=== PATIENT | female | born 1980 | race African-American/Black ===

== ENCOUNTER 2021-12-14 18:44 | Emergency (ER) | payer MEDICARE, OTHER | END 2021-12-14 21:35 | disposition home or self-care (01) | LOC: ERS 18:44 | DX: K94.23 Gastrostomy malfunction (principal) | CPT/HCPCS: 74018 ==

== ENCOUNTER 2022-03-13 17:00 | Emergency (ER) | payer MEDICARE, OTHER ==
[2022-03-13] MEDS ORDERED: Cefepime 2 GM VIAL ONE (18:12)
[2022-03-13 18:18] LABS: #Eosinphils 0.2 thou/uL (0.0-0.7); #Lymphocytes 2.7 thou/uL (1.20-3.40); #Neutrophils 4.7 thou/uL (1.40-6.50); %Basophils 0.4 % (0.0-1.0); %Eosinophils 2.4 % (0.0-10.0); %Monocytes 11.7 % (0.0-10.0); %Neutrophils 54.5 % (42.0-75.0); Hemoglobin 8.6 g/dL (12.0-16.0); Mean Corpuscular HGB CONC 30.7 g/dL (32.0-36.0); Mean Corpuscular Hemoglobin 24.7 pg (27.0-31.0); Mean Corpuscular Volume 80.4 fL (78.0-98.0); Mean Platelet Volume 10.2 fL (7.4-10.4); Platelet Count 253 thou/uL (130-400); RBC Distribution Width 16.1 % (11.5-14.5); White Blood Cell (WBC) Count 8.6 thou/uL (4.8-10.8)
[2022-03-13] MEDS ORDERED: Vancomycin 1.5 GRAM/300 ML BAG 1.5 GM in Premix Bag 1 BAG IVPB SCH (18:30)
[2022-03-13 18:39] LABS: ALT (SGPT) 54 U/L (8-55); AST (SGOT) 28 U/L (5-34); Albumin 3.4 g/dL (3.5-5.0); Alkaline Phosphatase 129 U/L (40-110); Anion Gap 12 mmol/L (10-20); BUN (Urea Nitrogen) 20 mg/dL (7.0-18.7); Bilirubin, Total Less than 0.2 mg/dL (0.2-1.2); Calc. Creatinine Clearance 0 mL/min (70-130); Calcium 9.2 mg/dL (7.8-10.44); Carbon Dioxide 28 mmol/L (22-29); Chloride 107 mmol/L (98-107); Estimated GFR 112; Globulin 5.2 g/dL (2.4-3.5); Glucose 120 mg/dL (70-105); Lipase 19 U/L (8-78); Potassium 4.3 mmol/L (3.5-5.1); Protein, Total 8.6 g/dL (6.0-8.3); Sodium 143 mmol/L (136-145)
[2022-03-13 20:29] LABS: Bilirubin Negative (Negative); Blood, Urine Negative (Negative); Clarity Clear (Clear); Glucose, Urine (Dipstick) Normal (Negative); Ketone, Urine Negative (Negative); Leukocyte 75 Leu/uL (Negative); Nitrite 2+ (Negative); Protein, Urine (Dipstick) 20 mg/dL (Neg-Trace); RBC/HPF 0-3 HPF (0-3); Specific Gravity, Urine 1.032 (1.002-1.036); Urobilinogen Normal mg/dL (Less than 2)
[2022-03-13 20:38] LABS: Bacteria/HPF 1+ HPF (None Seen)
== END 2022-03-13 22:43 | disposition home or self-care (01) ==
LOC: ERS 17:00
DX: N61.0 Mastitis without abscess (principal); N39.0 Urinary tract infection, site not specified
CPT/HCPCS: 74018; 76642; 80053; 83605; 83690; 85025; 87040; J3370; 36415; 51701; 81003; 81015; 96365; 96367; J0692

== ENCOUNTER 2023-06-15 14:15 | Emergency (ER) | payer MEDICAID, MEDICARE, OTHER ==
[~2023-06-15 14:15] MED LIST: Iopamidol-370 76% 500 ML MDV (1 ML CHARGE) ONE
[2023-06-15 17:04] LABS: ALT (SGPT) 7 U/L (8-55); AST (SGOT) 12 U/L (5-34); Albumin 3.7 g/dL (3.5-5.0); Alkaline Phosphatase 80 U/L (40-110); Anion Gap 18 mmol/L (10-20); BUN (Urea Nitrogen) 10 mg/dL (7.0-18.7); Bilirubin, Total 0.5 mg/dL (0.2-1.2); Calc. Creatinine Clearance 0 mL/min (70-130); Calcium 8.9 mg/dL (7.8-10.44); Carbon Dioxide 20 mmol/L (22-29); Chloride 110 mmol/L (98-107); Estimated GFR 113; Glucose 107 mg/dL (70-105); Lipase 5 U/L (8-78); Potassium 3.4 mmol/L (3.5-5.1); Protein, Total 8.7 g/dL (6.0-8.3); Sodium 145 mmol/L (136-145)
[2023-06-15 17:24] LABS: #Eosinphils 0.1 thou/uL (0.0-0.7); #Monocytes 0.8 thou/uL (0.11-0.59); #Neutrophils 3.3 thou/uL (1.40-6.50); %Basophils 0.2 % (0.0-1.0); %Eosinophils 0.8 % (0.0-10.0); %Lymphocytes 35.9 % (21.0-51.0); %Monocytes 11.9 % (0.0-10.0); Hematocrit 39.8 % (36.0-47.0); Hemoglobin 11.6 g/dL (12.0-16.0); Mean Corpuscular HGB CONC 29.1 g/dL (32.0-36.0); Mean Corpuscular Hemoglobin 23.5 pg (27.0-31.0); Mean Corpuscular Volume 80.6 fl (78.0-98.0); Platelet Count 192 10x3/uL (130-400); RBC Distribution Width 21.7 % (11.5-14.5); Red Blood Cell (RBC) Count 4.94 mill/uL (4.20-5.40); White Blood Cell (WBC) Count 6.4 10x3/uL (4.8-10.8)
[2023-06-15 17:26] LABS: BHCG - Serum Negative (NEGATIVE); Pregs Control Background? CLEAR/WHITE (CLR/WHITE); Pregs Control Bar Appear? YES (CONTROL BAR)
[2023-06-15] MEDS ORDERED: Mineral Oil ENEMA ONE (19:53)
== END 2023-06-15 21:06 | disposition home or self-care (01) ==
LOC: ERS 14:15
DX: K59.00 Constipation, unspecified (principal); E11.9 Type 2 diabetes mellitus without complications; I10 Essential (primary) hypertension; E03.9 Hypothyroidism, unspecified; Z79.84 Long term (current) use of oral hypoglycemic drugs; Z79.899 Other long term (current) drug therapy; Z79.82 Long term (current) use of aspirin
CPT/HCPCS: 36415; 71045; 74177; 80053; 83605; 83690; 83735; 84703; 85025; 94760; 96360; 96361; Q9967

== ENCOUNTER 2023-06-20 10:31 | Outpatient (CLI) | payer MEDICARE, OTHER | END 2023-06-20 10:32 | disposition home or self-care (01) | LOC: RAD 10:31 | PROVIDERS: ATTEND Student in an Organized Health Care Education/Training Program | DX: I69.891 Dysphagia following other cerebrovascular disease (principal) | CPT/HCPCS: 74230 ==

== ENCOUNTER 2023-07-03 12:52 | Inpatient (IN) | payer MEDICAID, MEDICARE ==
[~2023-07-03 12:52] MED LIST changes: -Iopamidol-370 76% 500 ML MDV (1 ML CHARGE) ONE; +Lidocaine 1% PF 5 ML VIAL ONE; +PROPOFOL 200 MG/20 ML VIAL ONE
[2023-07-03 13:20] LABS: #Monocytes 1.2 thou/uL (0.11-0.59); %Basophils 0.1 % (0.0-1.0); %Lymphocytes 9.4 % (21.0-51.0); %Monocytes 8.8 % (0.0-10.0); %Neutrophils 81.2 % (42.0-75.0); Hematocrit 44.2 % (36.0-47.0); Hemoglobin 12.8 g/dL (12.0-16.0); Mean Corpuscular Volume 82.8 fl (78.0-98.0); RBC Distribution Width 22.9 % (11.5-14.5); Red Blood Cell (RBC) Count 5.34 mill/uL (4.20-5.40); White Blood Cell (WBC) Count 13.5 10x3/uL (4.8-10.8)
[2023-07-03 13:21] LABS: Platelet Count 121 10x3/uL (130-400)
[2023-07-03 13:34] LABS: ALT (SGPT) 90 U/L (8-55); AST (SGOT) 94 U/L (5-34); Alkaline Phosphatase 103 U/L (40-110); Anion Gap 29 mmol/L (10-20); BUN (Urea Nitrogen) 76 mg/dL (7.0-18.7); Bilirubin, Total 1.1 mg/dL (0.2-1.2); Calc. Creatinine Clearance 0 mL/min (70-130); Calcium 9.1 mg/dL (7.8-10.44); Carbon Dioxide 23 mmol/L (22-29); Chloride 115 mmol/L (98-107); Estimated GFR 13; Globulin 4.7 g/dL (2.4-3.5); Potassium 4.1 mmol/L (3.5-5.1); Protein, Total 7.7 g/dL (6.0-8.3)
[2023-07-03 13:42] LABS: Glucose 571 mg/dL (70-105); Sodium 163 mmol/L (136-145)
[2023-07-03 13:59] LABS: Actual Bicarbonate (HCO3v) 22.3 mEq/L (22-28); Base Excess -2.8 mEq/L (-2.0 to +3.0); Calcium, Ionized (venous) 1.01 mmol/L (1.16-1.32); Chloride (VBG) 117 mmol/L (98-106); Hematocrit-VBG 41 % (36.0-47.0); Hemoglobin (Hb) 13.8 g/dL (11.7-15.5); pH (venous) 7.367 (7.32-7.43)
[2023-07-03 14:01] LABS: Potassium (VBG) 6.24 mmol/L (3.70-5.30); Sodium 162 mmol/L (133-146)
[2023-07-03] MEDS ORDERED: Sodium Chloride 0.9% 100 ML ONE (14:13)
[2023-07-03] MEDS ORDERED: Piperacillin/Tazobactam 3.375 GM VIAL ONE (14:13)
[2023-07-03 14:17] LABS: Lipase 34 U/L (8-78); Magnesium 3.1 mg/dL (1.6-2.6); Phosphorus 5.8 mg/dL (2.3-4.7)
[2023-07-03 14:21] LABS: INR-International Normal Ratio 1.3; PTT 24.8 sec (22.9-36.1); Prothrombin Time 16.5 sec (12.0-14.7)
[2023-07-03] MEDS ORDERED: Calcium Chloride 1 GM/10 ML Abboject SYRINGE ONE (14:35)
[2023-07-03] MEDS ORDERED: NOREPINEPHRINE 8 MG/250 ML-D5W 250 ML ONE (14:35)
[2023-07-03] MEDS ORDERED: Sodium Bicarb 50 MEQ/50 ML Abboject 8.4% SYRINGE ONE (14:40)
[2023-07-03] MEDS ORDERED: Atropine Sulfate 1 mg/10 ml Syringe ONE (14:40)
[2023-07-03] MEDS ORDERED: Insulin Regular 300 UNITS/3 ML VIAL ONE (14:58)
[2023-07-03 15:22] LABS: Troponin I 0.038 ng/mL (< 0.028)
[2023-07-03] MEDS ORDERED: INSULIN REGULAR IN 0.9 % NACL 100 UNITS/100 ML BAG ONE (15:32)
[2023-07-03 15:33] LABS: Hemoglobin A1c 7.1 % (4.0-6.0)
[2023-07-03 15:35] LABS: Free T4 (Free Thyroxine) 0.85 ng/dL (0.70-1.48)
[2023-07-03] MEDS ORDERED: Electrolyte Replacement Protocol 1 EACH IVPB ONE (15:57)
[2023-07-03] MEDS ORDERED: D5 1/2 NS w/20 mEq KCL 1,000 ML IV PRN (15:57)
[2023-07-03] MEDS ORDERED: Sodium Chloride 0.9% 1,000 ML IV PRN ×4 (15:57)
[2023-07-03] MEDS ORDERED: NS 0.9% w/ 20 MEQ KCL 1,000 ML IV PRN ×2 (15:57)
[2023-07-03] MEDS ORDERED: Dextrose 50% Abboject 50 ML SYRINGE SLOW IVP PRN (15:57)
[2023-07-03] MEDS ORDERED: Dextrose 5 %-0.45 % NaCl 1,000 ML IV PRN (15:57)
[2023-07-03 16:29] LABS: Lactic Acid 2.6 mmol/L (0.5-2.2)
[2023-07-03] MEDS: NOREPINEPHRINE 8 MG/250 ML-D5W 250 ML IVPB SCH (16:40)
[2023-07-03 16:48] LABS: Troponin I 0.062 ng/mL (< 0.028)
[2023-07-03 16:57] LABS: Anion Gap 18 mmol/L (10-20); BUN (Urea Nitrogen) 64 mg/dL (7.0-18.7); Calc. Creatinine Clearance 0 mL/min (70-130); Calcium 8.6 mg/dL (7.8-10.44); Carbon Dioxide 23 mmol/L (22-29); Chloride 128 mmol/L (98-107); Estimated GFR 18; Glucose 385 mg/dL (70-105); Potassium 2.4 mmol/L (3.5-5.1); Sodium 167 mmol/L (136-145)
[2023-07-03 17:09] LABS: Bilirubin 1+ (Negative); Blood, Urine 2+ (Negative); CAUTI Indications for Culture Alt mental st,lethar; Clarity Turbid (Clear); Glucose, Urine (Dipstick) 300 mg/dL (Negative); Ketone, Urine 10 mg/dL (Negative); Leukocyte 25 Leu/uL (Negative); Nitrite Negative (Negative); Protein, Urine (Dipstick) 50 mg/dL (Neg-Trace); Specific Gravity, Urine 1.015 (1.002-1.036); Urobilinogen 3 mg/dL (Less than 2); pH, Urine 5.5 (5.0-9.0)
[2023-07-03] MEDS ORDERED: Sodium Chloride 0.45% 1,000 ML IV SCH (17:15)
[2023-07-03] MEDS ORDERED: Potassium Chloride 20 MEQ in Premix 1 BAG IVPB SCH (17:15)
[2023-07-03 17:17] LABS: Bacteria/HPF 2+ HPF (None Seen)
[2023-07-03 17:18] LABS: Urine Culture Reflex Yes Yes
[2023-07-03 17:30] LABS: SARS-CoV-2 NAA Rapid Test Not Detected (NotDetected)
[2023-07-03] MEDS: Potassium Chloride 20 MEQ in Premix 1 BAG IVPB SCH (17:36)
[2023-07-03] MEDS ORDERED: Piperacillin/Tazobactam 2.25 GM in Sodium Chloride 0.9% 100 ML IVPB SCH (18:00)
[2023-07-03] MEDS: Piperacillin/Tazobactam 3.375 GM in Sodium Chloride 0.9% 100 ML IVPB SCH (18:41)
[2023-07-03 20:32] LABS: Anion Gap 19 mmol/L (10-20); BUN (Urea Nitrogen) 60 mg/dL (7.0-18.7); Calc. Creatinine Clearance 25 mL/min (70-130); Calcium 8.8 mg/dL (7.8-10.44); Carbon Dioxide 23 mmol/L (22-29); Chloride 127 mmol/L (98-107); Estimated GFR 22; Glucose 157 mg/dL (70-105); Potassium 3.3 mmol/L (3.5-5.1); Sodium 166 mmol/L (136-145)
[2023-07-03 20:34] LABS: Troponin I 0.093 ng/mL (< 0.028)
[2023-07-03] MEDS ORDERED: Albumin 25% 25 GM/100 ML BOT IVPB SCH (21:00)
[2023-07-03] MEDS ORDERED: D5 1/2 NS w/20 mEq KCL 1,000 ML IV SCH (21:15)
[2023-07-03] MEDS ORDERED: Sodium Chloride 0.9% 1,000 ML IV SCH (21:15)
[2023-07-03] MEDS: Heparin 5,000 UNITS/ML VIAL SC SCH (21:47)
[2023-07-03] MEDS: Albumin 25% 25 GM/100 ML BOT IVPB SCH (22:26)
[2023-07-04 01:28] LABS: Troponin I 0.097 ng/mL (< 0.028)
[2023-07-04 01:29] LABS: Lactic Acid 5.9 mmol/L (0.5-2.2)
[2023-07-04 01:35] LABS: Anion Gap 17 mmol/L (10-20); BUN (Urea Nitrogen) 51 mg/dL (7.0-18.7); Calc. Creatinine Clearance 30 mL/min (70-130); Calcium 8.3 mg/dL (7.8-10.44); Carbon Dioxide 23 mmol/L (22-29); Chloride 129 mmol/L (98-107); Estimated GFR 27; Glucose 157 mg/dL (70-105); Potassium 3.5 mmol/L (3.5-5.1); Sodium 165 mmol/L (136-145)
[2023-07-04] MEDS ORDERED: Ondansetron PF 4 MG/2 ML Vial IVP SCH (02:45)
[2023-07-04] MEDS: D5 1/2 NS w/20 mEq KCL 1,000 ML IV SCH ×5 (02:53→15:50)
[2023-07-04] MEDS: HUMULIN R 100 UNITS in Sodium Chloride 0.9% 100 ML IVPB SCH ×2 (02:56→08:55)
[2023-07-04 03:40] LABS: #Monocytes 0.9 thou/uL (0.11-0.59); #Neutrophils 8.3 thou/uL (1.40-6.50); %Basophils 0.1 % (0.0-1.0); %Eosinophils 0.1 % (0.0-10.0); %Monocytes 7.9 % (0.0-10.0); %Neutrophils 71.2 % (42.0-75.0); Mean Corpuscular HGB CONC 27.1 g/dL (32.0-36.0); Mean Corpuscular Hemoglobin 23.9 pg (27.0-31.0); RBC Distribution Width 22.5 % (11.5-14.5); Red Blood Cell (RBC) Count 3.27 mill/uL (4.20-5.40); White Blood Cell (WBC) Count 11.7 10x3/uL (4.8-10.8)
[2023-07-04 03:48] LABS: Platelet Count 70 10x3/uL (130-400)
[2023-07-04 03:54] LABS: Hematocrit 28.8 % (36.0-47.0); Hemoglobin 7.8 g/dL (12.0-16.0); Mean Corpuscular Volume 88.1 fl (78.0-98.0)
[2023-07-04 04:06] LABS: ALT (SGPT) 42 U/L (8-55); AST (SGOT) 40 U/L (5-34); Albumin 2.6 g/dL (3.5-5.0); Alkaline Phosphatase 53 U/L (40-110); Anion Gap 11 mmol/L (10-20); BUN (Urea Nitrogen) 45 mg/dL (7.0-18.7); Calc. Creatinine Clearance 33 mL/min (70-130); Calcium 8.2 mg/dL (7.8-10.44); Carbon Dioxide 26 mmol/L (22-29); Chloride 125 mmol/L (98-107); Estimated GFR 30; Globulin 2.6 g/dL (2.4-3.5); Glucose 275 mg/dL (70-105); Magnesium 1.9 mg/dL (1.6-2.6); Potassium 3.3 mmol/L (3.5-5.1); Protein, Total 5.2 g/dL (6.0-8.3); Sodium 159 mmol/L (136-145)
[2023-07-04 04:27] LABS: CellaVision Operator ID LAB.CLH1; Elliptocytes SLIGHT = 2-5 cells HPF (0-1); Hypochromia SLIGHT = 6-15 cells HPF (0-5); Platelet Adequacy Comment Platelets Decreased; Poikilocytosis MODERATE=16-30 cells HPF (0-5); Polychromasia SLIGHT = 2-3 cells HPF (0-2); Schistocytes SLIGHT = 2-5 cells HPF (0-1); Target Cells SLIGHT = 2-5 cells HPF (0-1)
[2023-07-04 05:02] LABS: Troponin I 0.083 ng/mL (< 0.028)
[2023-07-04] MEDS: Albumin 25% 25 GM/100 ML BOT IVPB SCH ×3 (05:17→15:50)
[2023-07-04] MEDS: Piperacillin/Tazobactam 3.375 GM in Sodium Chloride 0.9% 100 ML IVPB SCH ×3 (05:51→22:09)
[2023-07-04] MEDS ORDERED: Electrolyte Replacement Protocol 1 EACH FS SCH (06:30)
[2023-07-04] MEDS: Potassium Chloride 20 MEQ in Premix 1 BAG IVPB SCH ×2 (07:59→09:26)
[2023-07-04] MEDS: Bisacodyl 10 MG SUPP PR SCH (08:00)
[2023-07-04] MEDS ORDERED: Potassium Phosphate 22 MMOL in Sodium Chloride 0.9% 250 ML 250 ML IVPB SCH (08:00)
[2023-07-04] MEDS: Heparin 5,000 UNITS/ML VIAL SC SCH ×3 (08:11→20:29)
[2023-07-04] MEDS ORDERED: Famotidine/PF 20 mg/2ml Vial SLOW IVP SCH (09:00)
[2023-07-04 09:31] LABS: Hematocrit 25.7 % (36.0-47.0); Hemoglobin 7.3 g/dL (12.0-16.0)
[2023-07-04 09:53] LABS: Anion Gap 16 mmol/L (10-20); BUN (Urea Nitrogen) 35 mg/dL (7.0-18.7); Calc. Creatinine Clearance 49 mL/min (70-130); Carbon Dioxide 21 mmol/L (22-29); Chloride 125 mmol/L (98-107); Estimated GFR 45; Glucose 201 mg/dL (70-105); Potassium 4.4 mmol/L (3.5-5.1)
[2023-07-04 10:01] LABS: Sodium 158 mmol/L (136-145)
[2023-07-04] MEDS ORDERED: Glucagon 1 MG/ML KIT IM PRN (10:29)
[2023-07-04] MEDS ORDERED: Dextrose 5% in Water 1,000 ML IV PRN (10:29)
[2023-07-04] MEDS ORDERED: Fentanyl 100 MCG/2 ML VIAL SLOW IVP PRN (10:38)
[2023-07-04] MEDS: HumaLOG 300 UNITS/3 ML VIAL SC PRN ×3 (11:46→17:55)
[2023-07-04] MEDS: NOREPINEPHRINE 8 MG/250 ML-D5W 250 ML IVPB SCH (12:23)
[2023-07-04] MEDS ORDERED: Magnesium 2 GM/50 ML(in water) 2 GM in Premix 1 BAG IVPB SCH (12:30)
[2023-07-04 13:50] LABS: Anion Gap 15 mmol/L (10-20); BUN (Urea Nitrogen) 30 mg/dL (7.0-18.7); Calc. Creatinine Clearance 53 mL/min (70-130); Calcium 8.1 mg/dL (7.8-10.44); Carbon Dioxide 19 mmol/L (22-29); Chloride 124 mmol/L (98-107); Estimated GFR 50; Glucose 244 mg/dL (70-105); Potassium 5.4 mmol/L (3.5-5.1)
[2023-07-04 14:01] LABS: Sodium 153 mmol/L (136-145)
[2023-07-04 14:10] LABS: Magnesium 1.9 mg/dL (1.6-2.6)
[2023-07-04] MEDS ORDERED: Dextrose 5 %-0.45 % NaCl 1,000 ML IV SCH (16:00)
[2023-07-04] MEDS: Lactated Ringer's 1,000 ML IV SCH ×2 (17:30→22:09)
[2023-07-04 19:42] LABS: Anion Gap 17 mmol/L (10-20); BUN (Urea Nitrogen) 22 mg/dL (7.0-18.7); Calc. Creatinine Clearance 60 mL/min (70-130); Calcium 8.4 mg/dL (7.8-10.44); Carbon Dioxide 18 mmol/L (22-29); Chloride 122 mmol/L (98-107); Estimated GFR 58; Glucose 296 mg/dL (70-105); Potassium 4.5 mmol/L (3.5-5.1)
[2023-07-04 19:48] LABS: Sodium 152 mmol/L (136-145)
[2023-07-04 21:47] LABS: Anion Gap 14 mmol/L (10-20); BUN (Urea Nitrogen) 20 mg/dL (7.0-18.7); Calc. Creatinine Clearance 66 mL/min (70-130); Calcium 8.4 mg/dL (7.8-10.44); Carbon Dioxide 21 mmol/L (22-29); Chloride 122 mmol/L (98-107); Estimated GFR 65; Glucose 201 mg/dL (70-105); Potassium 4.4 mmol/L (3.5-5.1)
[2023-07-04 21:58] LABS: Sodium 153 mmol/L (136-145)
[2023-07-05 01:46] LABS: Anion Gap 16 mmol/L (10-20); BUN (Urea Nitrogen) 16 mg/dL (7.0-18.7); Calc. Creatinine Clearance 85 mL/min (70-130); Calcium 8.6 mg/dL (7.8-10.44); Carbon Dioxide 23 mmol/L (22-29); Chloride 120 mmol/L (98-107); Estimated GFR 88; Glucose 167 mg/dL (70-105); Potassium 4.4 mmol/L (3.5-5.1)
[2023-07-05 01:50] LABS: Sodium 155 mmol/L (136-145)
[2023-07-05] MEDS: Lactated Ringer's 1,000 ML IV SCH ×4 (03:12→19:20)
[2023-07-05 05:36] LABS: #Eosinphils 0.1 thou/uL (0.0-0.7); #Monocytes 0.7 thou/uL (0.11-0.59); #Neutrophils 4.6 thou/uL (1.40-6.50); %Basophils 0.1 % (0.0-1.0); %Eosinophils 0.7 % (0.0-10.0); %Lymphocytes 33.2 % (21.0-51.0); %Monocytes 8.2 % (0.0-10.0); %Neutrophils 56.9 % (42.0-75.0); Hematocrit 25.9 % (36.0-47.0); Hemoglobin 7.6 g/dL (12.0-16.0); Mean Corpuscular HGB CONC 29.3 g/dL (32.0-36.0); Mean Corpuscular Hemoglobin 24.1 pg (27.0-31.0); Mean Corpuscular Volume 82.2 fl (78.0-98.0); RBC Distribution Width 22.5 % (11.5-14.5); Red Blood Cell (RBC) Count 3.15 mill/uL (4.20-5.40); White Blood Cell (WBC) Count 8.1 10x3/uL (4.8-10.8)
[2023-07-05 05:37] LABS: Platelet Count 45 10x3/uL (130-400)
[2023-07-05] MEDS: Piperacillin/Tazobactam 3.375 GM in Sodium Chloride 0.9% 100 ML IVPB SCH (05:53)
[2023-07-05 06:06] LABS: Magnesium 1.8 mg/dL (1.6-2.6); Phosphorus 1.9 mg/dL (2.3-4.7)
[2023-07-05 07:49] LABS: Anion Gap 13 mmol/L (10-20); BUN (Urea Nitrogen) 13 mg/dL (7.0-18.7); Calc. Creatinine Clearance 97 mL/min (70-130); Calcium 8.4 mg/dL (7.8-10.44); Carbon Dioxide 25 mmol/L (22-29); Chloride 118 mmol/L (98-107); Estimated GFR 102; Glucose 156 mg/dL (70-105); Potassium 4.3 mmol/L (3.5-5.1)
[2023-07-05 07:54] LABS: Sodium 152 mmol/L (136-145)
[2023-07-05] MEDS ORDERED: Magnesium 2 GM/50 ML(in water) 2 GM in Premix 1 BAG IVPB SCH (08:00)
[2023-07-05] MEDS ORDERED: Potassium Phosphate 15 MMOL in Sodium Chloride 0.9% 100 ML IVPB SCH (08:00)
[2023-07-05] MEDS: Bisacodyl 10 MG SUPP PR SCH (08:29)
[2023-07-05] MEDS: Famotidine/PF 20 mg/2ml Vial SLOW IVP SCH ×2 (08:40→20:24)
[2023-07-05 12:02] LABS: Platelet Count 67 10x3/uL (130-400)
[2023-07-05 12:43] LABS: Phosphorus 2.7 mg/dL (2.3-4.7)
[2023-07-05] MEDS: CEFAZOLIN 1 GM in Sodium Chloride 0.9% 100 ML IVPB SCH ×2 (15:29→23:20)
[2023-07-06] MEDS: Lactated Ringer's 1,000 ML IV SCH ×4 (04:15→21:14)
[2023-07-06 05:05] LABS: Anion Gap 15 mmol/L (10-20); BUN (Urea Nitrogen) 8 mg/dL (7.0-18.7); Calc. Creatinine Clearance 112 mL/min (70-130); Calcium 8.3 mg/dL (7.8-10.44); Carbon Dioxide 23 mmol/L (22-29); Chloride 109 mmol/L (98-107); Estimated GFR 112; Glucose 165 mg/dL (70-105); Phosphorus 2.4 mg/dL (2.3-4.7); Potassium 4.3 mmol/L (3.5-5.1); Sodium 143 mmol/L (136-145)
[2023-07-06] MEDS: CEFAZOLIN 1 GM in Sodium Chloride 0.9% 100 ML IVPB SCH ×3 (05:59→21:19)
[2023-07-06 07:58] LABS: #Eosinphils 0.1 thou/uL (0.0-0.7); #Monocytes 0.6 thou/uL (0.11-0.59); #Neutrophils 4.4 thou/uL (1.40-6.50); %Lymphocytes 35.2 % (21.0-51.0); Hematocrit 28.8 % (36.0-47.0); Hemoglobin 8.6 g/dL (12.0-16.0); Mean Corpuscular HGB CONC 29.9 g/dL (32.0-36.0); Mean Corpuscular Hemoglobin 24.3 pg (27.0-31.0); Mean Corpuscular Volume 81.4 fl (78.0-98.0); Platelet Count 73 10x3/uL (130-400); RBC Distribution Width 22.1 % (11.5-14.5); Red Blood Cell (RBC) Count 3.54 mill/uL (4.20-5.40)
[2023-07-06] MEDS ORDERED: Magnesium 2 GM/50 ML(in water) 2 GM in Premix 1 BAG IVPB SCH (08:00)
[2023-07-06] MEDS ORDERED: PROPOFOL 20 ML ONE (08:22)
[2023-07-06] MEDS ORDERED: Lidocaine 1% PF 5 ML VIAL ONE (08:22)
[2023-07-06] MEDS: Bisacodyl 10 MG SUPP PR SCH (09:10)
[2023-07-06] MEDS: Famotidine/PF 20 mg/2ml Vial SLOW IVP SCH ×2 (09:11→21:15)
[2023-07-06 09:38] VITALS: BMI 22.7
[2023-07-06 11:14] LABS: Band 2 % (5-11); Burr Cells MODERATE= 6-15 cells (100X) (0-1/hpf); Eosinophils 1 % (0-10); Lymphocytes 33 % (21-51); Monocytes 6 % (0-10); Neutrophil 58 % (42-75); Polychromasia SLIGHT = 2-3 cells (100X) (0-2/hpf); Schistocytes SLIGHT = 2-5 cells (100X) (0-1/hpf)
[2023-07-06 11:15] LABS: Anisocytosis MODERATE=16-30 cells (100X) (0-5/hpf); Hypochromia SLIGHT = 6-15 cells (100X) (0-5/hpf); Nucleated RBC (Manual Ct) 1 % (0)
[2023-07-06 11:16] LABS: Ovalocytes SLIGHT = 2-5 cells (100X) (0-1/hpf); Platelet Adequacy Comment Platelets Decreased
[2023-07-06] MEDS ORDERED: traZODone HCl 50 MG TAB PER TUBE PRN (14:04)
[2023-07-06] MEDS ORDERED: FLU VACC QS2023-24(6MOS UP)/PF 60 MCG/0.5 ML SYRINGE IM ONE (19:30)
[2023-07-06] MEDS: QUEtiapine 25 MG TAB PER TUBE SCH (21:15)
[2023-07-06] MEDS: hydrOXYzine 25 MG TAB PER TUBE SCH (21:15)
[2023-07-06] MEDS: Baclofen 10 MG TAB PER TUBE SCH (21:15)
[2023-07-06] MEDS: levETIRAcetam 500 mg/5 ml Oral Solution PER TUBE SCH (21:15)
[2023-07-06] MEDS: lamoTRIgine 25 MG TAB PER TUBE SCH (21:15)
[2023-07-06] MEDS: HumaLOG 300 UNITS/3 ML VIAL SC PRN (21:16)
[2023-07-07] MEDS ORDERED: Lactated Ringer's 500 ML IV SCH (02:30)
[2023-07-07] MEDS ORDERED: Lactated Ringer's 1,000 ML IV SCH (02:30)
[2023-07-07] MEDS ORDERED: Acetaminophen 325 MG TAB PO SCH (03:15)
[2023-07-07] MEDS: Lactated Ringer's 1,000 ML IV SCH (03:41)
[2023-07-07] MEDS: CEFAZOLIN 1 GM in Sodium Chloride 0.9% 100 ML IVPB SCH ×3 (05:02→22:00)
[2023-07-07] MEDS: HumaLOG 300 UNITS/3 ML VIAL SC PRN ×4 (05:02→22:00)
[2023-07-07 06:25] LABS: Magnesium 1.4 mg/dL (1.6-2.6); Phosphorus 2.1 mg/dL (2.3-4.7)
[2023-07-07] MEDS ORDERED: Magnesium Sulfate In Water 4 GM in Premix 1 BAG IVPB SCH (08:00)
[2023-07-07 08:30] LABS: #Eosinphils 0.1 thou/uL (0.0-0.7); #Monocytes 0.7 thou/uL (0.11-0.59); #Neutrophils 3.9 thou/uL (1.40-6.50); %Basophils 0.1 % (0.0-1.0); %Eosinophils 0.9 % (0.0-10.0); %Lymphocytes 35.8 % (21.0-51.0); %Monocytes 9.2 % (0.0-10.0); %Neutrophils 53.1 % (42.0-75.0); Hematocrit 33.4 % (36.0-47.0); Hemoglobin 10.3 g/dL (12.0-16.0); Mean Corpuscular HGB CONC 30.8 g/dL (32.0-36.0); Mean Corpuscular Hemoglobin 24.2 pg (27.0-31.0); Mean Corpuscular Volume 78.6 fl (78.0-98.0); RBC Distribution Width 21.8 % (11.5-14.5); Red Blood Cell (RBC) Count 4.25 mill/uL (4.20-5.40); White Blood Cell (WBC) Count 7.4 10x3/uL (4.8-10.8)
[2023-07-07 08:31] LABS: Anion Gap 17 mmol/L (10-20); BUN (Urea Nitrogen) 7 mg/dL (7.0-18.7); Calc. Creatinine Clearance 101 mL/min (70-130); Calcium 8.4 mg/dL (7.8-10.44); Carbon Dioxide 21 mmol/L (22-29); Chloride 109 mmol/L (98-107); Estimated GFR 106; Glucose 307 mg/dL (70-105); Potassium 4.1 mmol/L (3.5-5.1); Sodium 143 mmol/L (136-145)
[2023-07-07 08:59] LABS: Platelet Count 35 10x3/uL (130-400)
[2023-07-07] MEDS ORDERED: Aspirin Chewable 81 MG TAB PER TUBE SCH (09:00)
[2023-07-07] MEDS: Baclofen 10 MG TAB PER TUBE SCH ×2 (10:00→21:59)
[2023-07-07] MEDS: Lisinopril 10 MG TAB PER TUBE SCH (10:00)
[2023-07-07] MEDS ORDERED: PHOS-NAK 1 PKT PACK PER TUBE SCH (10:00)
[2023-07-07] MEDS: levETIRAcetam 500 mg/5 ml Oral Solution PER TUBE SCH ×2 (10:00→21:59)
[2023-07-07] MEDS: Famotidine/PF 20 mg/2ml Vial SLOW IVP SCH ×2 (10:01→21:59)
[2023-07-07] MEDS: Bisacodyl 10 MG SUPP PR SCH (10:06)
[2023-07-07] MEDS ORDERED: traMADol HCl 50 MG TAB PER TUBE PRN (10:20)
[2023-07-07] MEDS ORDERED: GASTROGRAFIN 30 ML BOT ONE (13:18)
[2023-07-07 14:13] LABS: Heparin-Induced Ab (HITA) 0.093 OD (0.000-0.400)
[2023-07-07] MEDS: metFORMIN 500 MG TAB PER TUBE SCH (16:16)
[2023-07-07] MEDS: hydrOXYzine 25 MG TAB PER TUBE SCH (21:59)
[2023-07-07] MEDS: QUEtiapine 25 MG TAB PER TUBE SCH (21:59)
[2023-07-07] MEDS: lamoTRIgine 25 MG TAB PER TUBE SCH (22:00)
[2023-07-08 05:34] LABS: Anion Gap 13 mmol/L (10-20); BUN (Urea Nitrogen) 6 mg/dL (7.0-18.7); Calc. Creatinine Clearance 110 mL/min (70-130); Calcium 7.8 mg/dL (7.8-10.44); Carbon Dioxide 22 mmol/L (22-29); Chloride 112 mmol/L (98-107); Estimated GFR 111; Glucose 294 mg/dL (70-105); Phosphorus 1.9 mg/dL (2.3-4.7); Potassium 3.5 mmol/L (3.5-5.1); Sodium 143 mmol/L (136-145)
[2023-07-08] MEDS: HumaLOG 300 UNITS/3 ML VIAL SC PRN ×3 (05:54→18:38)
[2023-07-08] MEDS: CEFAZOLIN 1 GM in Sodium Chloride 0.9% 100 ML IVPB SCH ×3 (05:54→21:09)
[2023-07-08] MEDS ORDERED: Magnesium 2 GM/50 ML(in water) 2 GM in Premix 1 BAG IVPB SCH (08:00)
[2023-07-08] MEDS ORDERED: Potassium Bicarbonate/Cit Ac 20 MEQ TAB PER TUBE SCH (08:00)
[2023-07-08] MEDS: PHOS-NAK 1 PKT PACK PO SCH ×2 (09:02→13:24)
[2023-07-08] MEDS: metFORMIN 500 MG TAB PER TUBE SCH ×2 (09:03→16:41)
[2023-07-08] MEDS: Baclofen 10 MG TAB PER TUBE SCH ×2 (09:03→20:50)
[2023-07-08] MEDS: Lisinopril 10 MG TAB PER TUBE SCH (09:03)
[2023-07-08] MEDS: Famotidine/PF 20 mg/2ml Vial SLOW IVP SCH ×2 (09:03→20:50)
[2023-07-08] MEDS: levETIRAcetam 500 mg/5 ml Oral Solution PER TUBE SCH ×2 (09:03→20:50)
[2023-07-08] MEDS: Bisacodyl 10 MG SUPP PR SCH (09:35)
[2023-07-08 13:47] LABS: #Eosinphils 0.1 thou/uL (0.0-0.7); #Monocytes 0.8 thou/uL (0.11-0.59); #Neutrophils 3.7 thou/uL (1.40-6.50); %Basophils 0.1 % (0.0-1.0); %Eosinophils 0.8 % (0.0-10.0); %Monocytes 11.3 % (0.0-10.0); %Neutrophils 51.1 % (42.0-75.0); Hematocrit 26.7 % (36.0-47.0); Hemoglobin 8.1 g/dL (12.0-16.0); Mean Corpuscular HGB CONC 30.3 g/dL (32.0-36.0); Mean Corpuscular Hemoglobin 24.6 pg (27.0-31.0); Mean Corpuscular Volume 81.2 fl (78.0-98.0); RBC Distribution Width 21.9 % (11.5-14.5); Red Blood Cell (RBC) Count 3.29 mill/uL (4.20-5.40); White Blood Cell (WBC) Count 7.3 10x3/uL (4.8-10.8)
[2023-07-08 14:02] LABS: Platelet Count 76 10x3/uL (130-400)
[2023-07-08 14:15] LABS: Iron 22 ug/dL (50-170); Iron Binding Capacity, Total 98 mcg/dL (265-497)
[2023-07-08 14:38] LABS: Ferritin 38.49 ng/mL (10-291)
[2023-07-08] MEDS: Ferrous Sulfate 325 MG TAB PO SCH (16:41)
[2023-07-08] MEDS: QUEtiapine 25 MG TAB PER TUBE SCH (20:50)
[2023-07-08] MEDS: hydrOXYzine 25 MG TAB PER TUBE SCH (20:50)
[2023-07-08] MEDS: Acetaminophen 325 MG TAB PER TUBE PRN (20:51)
[2023-07-08] MEDS: lamoTRIgine 25 MG TAB PER TUBE SCH (20:51)
[2023-07-09 05:43] LABS: Anion Gap 12 mmol/L (10-20); BUN (Urea Nitrogen) 9 mg/dL (7.0-18.7); Calc. Creatinine Clearance 139 mL/min (70-130); Calcium 7.4 mg/dL (7.8-10.44); Carbon Dioxide 24 mmol/L (22-29); Chloride 109 mmol/L (98-107); Estimated GFR 117; Glucose 159 mg/dL (70-105); Magnesium 2.1 mg/dL (1.6-2.6); Phosphorus 2.2 mg/dL (2.3-4.7); Sodium 141 mmol/L (136-145)
[2023-07-09] MEDS: HumaLOG 300 UNITS/3 ML VIAL SC PRN (05:59)
[2023-07-09 08:29] LABS: #Eosinphils 0.1 thou/uL (0.0-0.7); #Monocytes 1.1 thou/uL (0.11-0.59); #Neutrophils 4.7 thou/uL (1.40-6.50); %Basophils 0.1 % (0.0-1.0); %Lymphocytes 34.2 % (21.0-51.0); %Monocytes 11.8 % (0.0-10.0); %Neutrophils 52.2 % (42.0-75.0); Hematocrit 27.8 % (36.0-47.0); Hemoglobin 8.3 g/dL (12.0-16.0); Mean Corpuscular HGB CONC 29.9 g/dL (32.0-36.0); Mean Corpuscular Hemoglobin 24.4 pg (27.0-31.0); Mean Corpuscular Volume 81.8 fl (78.0-98.0); RBC Distribution Width 22.5 % (11.5-14.5); White Blood Cell (WBC) Count 9.1 10x3/uL (4.8-10.8)
[2023-07-09 08:33] LABS: Platelet Count 87 10x3/uL (130-400)
[2023-07-09] MEDS ORDERED: Iopamidol-370 76% 500 ML MDV (1 ML CHARGE) ONE (09:25)
[2023-07-09] MEDS: Famotidine/PF 20 mg/2ml Vial SLOW IVP SCH (10:13)
[2023-07-09] MEDS: levETIRAcetam 500 mg/5 ml Oral Solution PER TUBE SCH (10:13)
[2023-07-09] MEDS: PHOS-NAK 1 PKT PACK PO SCH ×2 (10:13→14:13)
[2023-07-09] MEDS: metFORMIN 500 MG TAB PER TUBE SCH ×2 (10:14→16:46)
[2023-07-09] MEDS: Bisacodyl 10 MG SUPP PR SCH (10:14)
[2023-07-09] MEDS: Baclofen 10 MG TAB PER TUBE SCH (10:14)
[2023-07-09] MEDS: Ferrous Sulfate 325 MG TAB PO SCH ×2 (10:14→16:47)
[2023-07-09] MEDS: Lisinopril 10 MG TAB PER TUBE SCH (10:15)
[2023-07-09] MEDS: Acetaminophen 325 MG TAB PER TUBE PRN (14:13)
[2023-07-09 16:10] VITALS: BP 104/73; TEMP 98.6
[2023-07-09] MEDS ORDERED: Calcium Carbonate 500 MG ChewTAB PO SCH (21:00)
== END 2023-07-09 18:18 | disposition home health service (06) | DRG 871 ==
LOC: ERS 12:52 → CCU 15:30 → IMCU/EMU 07-05 10:39 → T4-B 07-06 12:07 → 2SE 07-07 14:17
PROVIDERS: ADMIT Family Medicine; ATTEND Family Medicine
PROC: 05HM33Z Insertion of Infusion Device into Right Internal Jugular Vein, Percutaneous Approach (ICD-10-PCS; principal; 2023-07-03)
PROC: 3E03329 Introduction of Other Anti-infective into Peripheral Vein, Percutaneous Approach (ICD-10-PCS; 2023-07-03)
PROC: 3E033XZ Introduction of Vasopressor into Peripheral Vein, Percutaneous Approach (ICD-10-PCS; 2023-07-03)
PROC: 30233J1 Transfusion of Nonautologous Serum Albumin into Peripheral Vein, Percutaneous Approach (ICD-10-PCS; 2023-07-03)
PROC: 0DH63UZ Insertion of Feeding Device into Stomach, Percutaneous Approach (ICD-10-PCS; 2023-07-06)
DX: A41.9 Sepsis, unspecified organism (principal); E11.00 Type 2 diabetes mellitus with hyperosmolarity without nonketotic hyperglycemic-hyperosmolar coma (NKHHC); R57.1 Hypovolemic shock; R57.8 Other shock; G93.41 Metabolic encephalopathy; I26.93 Single subsegmental thrombotic pulmonary embolism without acute cor pulmonale; E43 Unspecified severe protein-calorie malnutrition; G82.20 Paraplegia, unspecified; E87.0 Hyperosmolality and hypernatremia; E87.20 Acidosis, unspecified; N17.9 Acute kidney failure, unspecified; I24.89 Other forms of acute ischemic heart disease; G93.40 Encephalopathy, unspecified; N39.0 Urinary tract infection, site not specified; R41.1 Anterograde amnesia; K59.00 Constipation, unspecified; E86.0 Dehydration; E87.6 Hypokalemia; E83.41 Hypermagnesemia; E83.39 Other disorders of phosphorus metabolism; D69.6 Thrombocytopenia, unspecified; I10 Essential (primary) hypertension; D50.9 Iron deficiency anemia, unspecified; R74.01 Elevation of levels of liver transaminase levels; E86.9 Volume depletion, unspecified; L89.329 Pressure ulcer of left buttock, unspecified stage; L89.219 Pressure ulcer of right hip, unspecified stage; E11.65 Type 2 diabetes mellitus with hyperglycemia; R13.12 Dysphagia, oropharyngeal phase; Z79.899 Other long term (current) drug therapy; Z87.820 Personal history of traumatic brain injury; Z68.22 Body mass index [BMI] 22.0-22.9, adult; Z88.8 Allergy status to other drugs, medicaments and biological substances; Z79.82 Long term (current) use of aspirin; Z98.890 Other specified postprocedural states; Z79.84 Long term (current) use of oral hypoglycemic drugs; Z82.49 Family history of ischemic heart disease and other diseases of the circulatory system; Z83.3 Family history of diabetes mellitus; Z11.52 Encounter for screening for COVID-19
CPT/HCPCS: 36415; 36416; 36556; 51702; 70450; 71045; 71275; 74018; 76770; 80048; 80053; 81001; 82010; 82550; 82607; 82728; 82805; 83010; 83036; 83540; 83550; 83605; 83615; 83690; 83735; 83921; 83930; 84100; 84439; 84443; 84484; 85025; 85046; 85060; 85379; 85520; 85610; 85730; 87040; 87077; 87086; 87186; 87804; 93005; 93010; 93970; 96361; 96365; 96366; 96367; 96368; 96375; 96376; 97139; J0461; J0690; J1642; J1644; J1815; J2543; J2704; J3475; J3480; J3490; J7042; J7050; J7120; P9047; Q9963; Q9967; S0028; U0002

== ENCOUNTER 2023-07-30 10:53 | Emergency (ER) | payer MEDICAID, MEDICARE ==
[2023-07-30] MEDS ORDERED: Cefepime 2 GM VIAL ONE (13:04)
[2023-07-30] MEDS ORDERED: Sodium Chloride 0.9% 100 ML ONE (13:04)
[2023-07-30 13:13] LABS: #Eosinphils 0.1 thou/uL (0.0-0.7); #Monocytes 0.8 thou/uL (0.11-0.59); #Neutrophils 8.9 thou/uL (1.40-6.50); %Basophils 0.1 % (0.0-1.0); %Eosinophils 0.9 % (0.0-10.0); %Lymphocytes 12.8 % (21.0-51.0); %Monocytes 7.1 % (0.0-10.0); %Neutrophils 78.7 % (42.0-75.0); Hematocrit 29.3 % (36.0-47.0); Hemoglobin 8.5 g/dL (12.0-16.0); Mean Corpuscular Hemoglobin 25.4 pg (27.0-31.0); Mean Corpuscular Volume 87.5 fl (78.0-98.0); Mean Platelet Volume 10.1 fL (7.4-10.4); Platelet Count 429 10x3/uL (130-400); RBC Distribution Width 21.2 % (11.5-14.5); Red Blood Cell (RBC) Count 3.35 mill/uL (4.20-5.40); White Blood Cell (WBC) Count 11.3 10x3/uL (4.8-10.8)
[2023-07-30 13:37] LABS: ALT (SGPT) 9 U/L (8-55); AST (SGOT) 13 U/L (5-34); Albumin 3.6 g/dL (3.5-5.0); Alkaline Phosphatase 69 U/L (40-110); Anion Gap 14 mmol/L (10-20); BUN (Urea Nitrogen) 25 mg/dL (7.0-18.7); Bilirubin, Total 0.3 mg/dL (0.2-1.2); Calc. Creatinine Clearance 0 mL/min (70-130); Calcium 9.1 mg/dL (7.8-10.44); Carbon Dioxide 25 mmol/L (22-29); Chloride 101 mmol/L (98-107); Estimated GFR 107; Globulin 5.2 g/dL (2.4-3.5); Glucose 117 mg/dL (70-105); Potassium 4.4 mmol/L (3.5-5.1); Protein, Total 8.8 g/dL (6.0-8.3); Sodium 136 mmol/L (136-145)
[2023-07-30] MEDS ORDERED: Vancomycin 1 GM/200 ML (FROZEN) BAG ONE (13:37)
[2023-07-30 14:02] LABS: Bacteria/HPF None Seen HPF (None Seen); Bilirubin Negative (Negative); Blood, Urine Negative (Negative); CAUTI Indications for Culture Alt mental st,lethar; Clarity Clear (Clear); Glucose, Urine (Dipstick) Normal (Negative); Ketone, Urine Negative (Negative); Leukocyte Negative Leu/uL (Negative); Nitrite Negative (Negative); Protein, Urine (Dipstick) 10 mg/dL (Neg-Trace); RBC/HPF 0-3 HPF (0-3); Specific Gravity, Urine 1.033 (1.002-1.036); Urobilinogen Normal mg/dL (Less than 2); WBC/HPF 0-3 HPF (0-3)
[2023-07-30 14:04] LABS: Urine Culture Reflex No No
[2023-07-30 14:37] LABS: SARS-CoV-2 NAA Rapid Test Not Detected (NotDetected)
== END 2023-07-30 15:40 | disposition home or self-care (01) ==
LOC: ERS 10:53
DX: L89.323 Pressure ulcer of left buttock, stage 3 (principal); L89.212 Pressure ulcer of right hip, stage 2; E11.9 Type 2 diabetes mellitus without complications; I10 Essential (primary) hypertension; E03.9 Hypothyroidism, unspecified; Z79.84 Long term (current) use of oral hypoglycemic drugs; Z79.899 Other long term (current) drug therapy; Z79.82 Long term (current) use of aspirin
CPT/HCPCS: 0240U; 80053; 81001; 83605; 85025; 87040; 87077; 87086; J3370; 87186; 96365; 96366; 96367; J0692; J3490

== ENCOUNTER 2023-08-28 11:11 | Inpatient (IN) | payer MEDICARE, OTHER ==
[2023-08-28] MEDS ORDERED: Iopamidol-370 76% 500 ML MDV (1 ML CHARGE) ONE (11:12)
[2023-08-28] MEDS ORDERED: Cefepime 2 GM VIAL ONE (12:18)
[2023-08-28 12:29] LABS: Hematocrit 21.1 % (36.0-47.0); Hemoglobin 6.5 g/dL (12.0-16.0); Manual Diff?? YES; Mean Corpuscular HGB CONC 30.8 g/dL (32.0-36.0); Mean Corpuscular Hemoglobin 24.3 pg (27.0-31.0); Mean Platelet Volume 9.2 fL (7.4-10.4); Platelet Count 264 10x3/uL (130-400); RBC Distribution Width 19.8 % (11.5-14.5); Red Blood Cell (RBC) Count 2.67 mill/uL (4.20-5.40); White Blood Cell (WBC) Count 8.3 10x3/uL (4.8-10.8)
[2023-08-28] MEDS ORDERED: Vancomycin (BATCH) 1.25 GM in Premix 1 BAG IVPB SCH (12:30)
[2023-08-28 12:34] LABS: Actual Bicarbonate (HCO3v) 26.1 mEq/L (22-28); Base Excess 0.4 mEq/L (-2.0 to +3.0); Chloride (VBG) 97 mmol/L (98-106); Hematocrit-VBG 21 % (36.0-47.0); Hemoglobin (Hb) 7.3 g/dL (11.7-15.5); Potassium (VBG) 4.74 mmol/L (3.70-5.30); Sodium 133 mmol/L (133-146); pH (venous) 7.353 (7.32-7.43)
[2023-08-28 12:42] LABS: BHCG - Serum Negative (NEGATIVE); Pregs Control Background? CLEAR/WHITE (CLR/WHITE); Pregs Control Bar Appear? YES (CONTROL BAR)
[2023-08-28 12:49] LABS: Delete Auto Diff?? YES
[2023-08-28 12:50] LABS: ALT (SGPT) 10 U/L (8-55); AST (SGOT) 10 U/L (5-34); Albumin 3.1 g/dL (3.5-5.0); Alkaline Phosphatase 82 U/L (40-110); Anion Gap 13 mmol/L (10-20); BUN (Urea Nitrogen) 31 mg/dL (7.0-18.7); Bilirubin, Total 0.5 mg/dL (0.2-1.2); CRP (Inflammatory) 7.85 mg/dL (= or < 0.5); Calc. Creatinine Clearance 0 mL/min (70-130); Calcium 8.6 mg/dL (7.8-10.44); Carbon Dioxide 26 mmol/L (22-29); Chloride 96 mmol/L (98-107); Estimated GFR 113; Globulin 3.8 g/dL (2.4-3.5); Glucose 146 mg/dL (70-105); Lipase 56 U/L (8-78); Potassium 4.9 mmol/L (3.5-5.1); Protein, Total 6.9 g/dL (6.0-8.3); Sodium 130 mmol/L (136-145)
[2023-08-28 12:54] LABS: Troponin I Less than 0.010 ng/mL (< 0.028)
[2023-08-28 13:03] LABS: Bacteria/HPF None Seen HPF (None Seen); Bilirubin Negative (Negative); Blood, Urine Negative (Negative); CAUTI Indications for Culture Fever or rigors; Clarity Clear (Clear); Glucose, Urine (Dipstick) Normal (Negative); Ketone, Urine 40 mg/dL (Negative); Leukocyte Negative Leu/uL (Negative); Nitrite Negative (Negative); Protein, Urine (Dipstick) 20 mg/dL (Neg-Trace); RBC/HPF 0-3 HPF (0-3); Specific Gravity, Urine 1.029 (1.002-1.036); Squamous Epithelial 0-3 HPF (0-3); Urobilinogen Normal mg/dL (Less than 2); WBC/HPF 0-3 HPF (0-3)
[2023-08-28 13:05] LABS: Urine Culture Reflex No No
[2023-08-28 13:11] LABS: Anisocytosis SLIGHT = 6-15 cells HPF (0-5); Band 2 % (5-11); CellaVision Operator ID LAB.KB; Hypochromia MODERATE=16-30 cells HPF (0-5); Lymphocytes 7 % (21-51); Monocytes 3 % (0-10); Neutrophil 88 % (42-75); Ovalocytes SLIGHT = 2-5 cells HPF (0-1); Platelet Adequacy Comment Platelets Normal; Polychromasia SLIGHT = 2-3 cells HPF (0-2); Tear Drops SLIGHT = 2-5 cells HPF (0-1); Total Cell Count 100
[2023-08-28 13:25] LABS: SARS-CoV-2 NAA Rapid Test Not Detected (NotDetected)
[2023-08-28] MEDS ORDERED: Ondansetron ODT 4 MG TAB PER TUBE PRN (16:04)
[2023-08-28] MEDS: Ferrous Sulfate 325 MG TAB PO SCH (17:05)
[2023-08-28] MEDS: metFORMIN 500 MG TAB PER TUBE SCH (17:06)
[2023-08-28] MEDS ORDERED: Ondansetron ODT 4 MG TAB ONE (17:12)
[2023-08-28] MEDS ORDERED: Acetaminophen 325 MG TAB ONE (17:25)
[2023-08-28] MEDS ORDERED: Acetaminophen 325 MG (10.15 ML) UDCUP ONE (17:25)
[2023-08-28] MEDS: Acetaminophen 325 MG TAB PER TUBE PRN (17:29)
[2023-08-28] MEDS ORDERED: Apixaban 5 MG TAB PER TUBE SCH (21:00)
[2023-08-28] MEDS: lamoTRIgine 25 MG TAB PER TUBE SCH (22:55)
[2023-08-28] MEDS: QUEtiapine 25 MG TAB PER TUBE SCH (23:25)
[2023-08-28] MEDS: Baclofen 10 MG TAB PER TUBE SCH (23:25)
[2023-08-28] MEDS: traZODone HCl 50 MG TAB PER TUBE PRN (23:25)
[2023-08-28] MEDS: levETIRAcetam 500 mg/5 ml Oral Solution PER TUBE SCH (23:25)
[2023-08-28] MEDS: Calcium Carbonate 500 MG ChewTAB PER TUBE SCH (23:25)
[2023-08-28] MEDS: hydrOXYzine 25 MG TAB PER TUBE SCH (23:26)
[2023-08-29] MEDS: Cefepime 2 GM in Sodium Chloride 0.9% 100 ML IVPB SCH ×3 (00:27→22:05)
[2023-08-29] MEDS: Acetaminophen 325 MG TAB PER TUBE PRN ×2 (00:29→18:46)
[2023-08-29] MEDS ORDERED: Vancomycin HCl 750 MG in Sodium Chloride 0.9% 250 ML 250 ML IVPB SCH ×3 (00:30→10:45)
[2023-08-29 03:02] LABS: #Monocytes 0.6 thou/uL (0.11-0.59); #Neutrophils 3.7 thou/uL (1.40-6.50); %Basophils 0.2 % (0.0-1.0); %Eosinophils 0.5 % (0.0-10.0); %Lymphocytes 23.9 % (21.0-51.0); %Monocytes 10.5 % (0.0-10.0); %Neutrophils 64.4 % (42.0-75.0); Hematocrit 26.8 % (36.0-47.0); Hemoglobin 8.4 g/dL (12.0-16.0); Manual Diff?? YES; Mean Corpuscular HGB CONC 31.3 g/dL (32.0-36.0); Mean Corpuscular Hemoglobin 25.8 pg (27.0-31.0); Mean Platelet Volume 9.4 fL (7.4-10.4); Platelet Count 206 10x3/uL (130-400); RBC Distribution Width 17.7 % (11.5-14.5); Red Blood Cell (RBC) Count 3.26 mill/uL (4.20-5.40); White Blood Cell (WBC) Count 5.7 10x3/uL (4.8-10.8)
[2023-08-29 03:05] LABS: Mean Corpuscular Volume 82.2 fl (78.0-98.0)
[2023-08-29 03:36] LABS: ALT (SGPT) 11 U/L (8-55); AST (SGOT) 12 U/L (5-34); Albumin 2.7 g/dL (3.5-5.0); Alkaline Phosphatase 72 U/L (40-110); Anion Gap 10 mmol/L (10-20); BUN (Urea Nitrogen) 22 mg/dL (7.0-18.7); Bilirubin, Total 0.6 mg/dL (0.2-1.2); Calc. Creatinine Clearance 134 mL/min (70-130); Calcium 8.1 mg/dL (7.8-10.44); Carbon Dioxide 23 mmol/L (22-29); Chloride 104 mmol/L (98-107); Estimated GFR 118; Globulin 3.8 g/dL (2.4-3.5); Glucose 110 mg/dL (70-105); Potassium 4.2 mmol/L (3.5-5.1); Protein, Total 6.5 g/dL (6.0-8.3); Sodium 133 mmol/L (136-145)
[2023-08-29 03:40] LABS: Anisocytosis SLIGHT = 6-15 cells HPF (0-5); Band 12 % (5-11); CellaVision Operator ID LAB.CLH1; Eosinophils 2 % (0-10); Hypochromia SLIGHT = 6-15 cells HPF (0-5); Lymphocytes 16 % (21-51); Monocytes 3 % (0-10); Neutrophil 67 % (42-75); Platelet Adequacy Comment Platelets Normal; Polychromasia MODERATE = 3-4 cells HPF (0-2); Target Cells SLIGHT = 2-5 cells HPF (0-1); Total Cell Count 101
[2023-08-29] MEDS: Lactated Ringer's 1,000 ML IV SCH (08:45)
[2023-08-29] MEDS: levETIRAcetam 500 mg/5 ml Oral Solution PER TUBE SCH ×2 (08:46→21:01)
[2023-08-29] MEDS: Baclofen 10 MG TAB PER TUBE SCH ×2 (08:46→21:01)
[2023-08-29] MEDS: metFORMIN 500 MG TAB PER TUBE SCH ×2 (08:47→18:35)
[2023-08-29] MEDS: Ferrous Sulfate 325 MG TAB PO SCH ×2 (08:47→18:35)
[2023-08-29] MEDS: Calcium Carbonate 500 MG ChewTAB PER TUBE SCH ×2 (09:00→21:01)
[2023-08-29] MEDS ORDERED: Lisinopril 10 MG TAB PER TUBE SCH (09:00)
[2023-08-29] MEDS ORDERED: EPINEPHrine 1 MG/ML VIAL ONE (12:47)
[2023-08-29] MEDS ORDERED: Bupivacaine 0.25% HCL 30 ML VIAL ONE (12:47)
[2023-08-29] MEDS ORDERED: Famotidine/PF 20 mg/2ml Vial ONE (13:06)
[2023-08-29] MEDS ORDERED: Lidocaine 1% PF 5 ML VIAL ONE (13:19)
[2023-08-29] MEDS ORDERED: PROPOFOL 20 ML ONE (13:19)
[2023-08-29] MEDS ORDERED: Rocuronium Bromide 10 MG/ML (10ML VIAL) ONE (13:19)
[2023-08-29] MEDS ORDERED: fentaNYL PF 100 MCG/2 ML SYRINGE ONE (13:19)
[2023-08-29] MEDS ORDERED: metroNIDAZOLE 500 MG (100 mL) BAG ONE (14:27)
[2023-08-29] MEDS ORDERED: fentaNYL 50 mcg/mL 1 mL Vial ONE ×2 (15:56→17:52)
[2023-08-29] MEDS ORDERED: Ondansetron PF 4 MG/2 ML Vial ONE (16:59)
[2023-08-29] MEDS ORDERED: Dexamethasone 4 mg/ml Vial ONE (16:59)
[2023-08-29] MEDS ORDERED: SUGAMMADEX SODIUM 200 MG/2 ML VIAL ONE (17:00)
[2023-08-29] MEDS: metroNIDAZOLE 500 MG in Premix 1 BAG IVPB SCH ×2 (18:35→20:54)
[2023-08-29] MEDS: Ketorolac Tromethamine 30 MG (1 mL) VIAL IVP SCH (18:45)
[2023-08-29] MEDS: lamoTRIgine 25 MG TAB PER TUBE SCH (21:01)
[2023-08-29] MEDS: QUEtiapine 25 MG TAB PER TUBE SCH (21:01)
[2023-08-29] MEDS: hydrOXYzine 25 MG TAB PER TUBE SCH (21:01)
[2023-08-29] MEDS: traMADol HCl 50 MG TAB PO PRN (21:02)
[2023-08-29 22:05] LABS: Vancomycin, Trough 12.2 ug/mL
[2023-08-30] MEDS: Vancomycin 1 GM in Premix 1 BAG IVPB SCH ×2 (00:15→11:19)
[2023-08-30] MEDS: Ketorolac Tromethamine 30 MG (1 mL) VIAL IVP SCH ×4 (00:15→17:06)
[2023-08-30] MEDS: Lactated Ringer's 1,000 ML IV SCH ×3 (02:04→22:42)
[2023-08-30] MEDS: metroNIDAZOLE 500 MG in Premix 1 BAG IVPB SCH ×3 (05:42→21:11)
[2023-08-30 07:01] LABS: Hematocrit 29.7 % (36.0-47.0); Manual Diff?? YES; Mean Corpuscular HGB CONC 30.3 g/dL (32.0-36.0); Mean Corpuscular Hemoglobin 25.6 pg (27.0-31.0); Mean Corpuscular Volume 84.6 fl (78.0-98.0); Platelet Count 186 10x3/uL (130-400); RBC Distribution Width 18.9 % (11.5-14.5); Red Blood Cell (RBC) Count 3.51 mill/uL (4.20-5.40); White Blood Cell (WBC) Count 2.3 10x3/uL (4.8-10.8)
[2023-08-30 07:10] LABS: Delete Auto Diff?? YES
[2023-08-30 07:25] LABS: ALT (SGPT) 9 U/L (8-55); AST (SGOT) 7 U/L (5-34); Albumin 2.6 g/dL (3.5-5.0); Alkaline Phosphatase 86 U/L (40-110); Anion Gap 14 mmol/L (10-20); BUN (Urea Nitrogen) 19 mg/dL (7.0-18.7); Bilirubin, Total 0.3 mg/dL (0.2-1.2); Calc. Creatinine Clearance 129 mL/min (70-130); Calcium 8.3 mg/dL (7.8-10.44); Carbon Dioxide 20 mmol/L (22-29); Chloride 109 mmol/L (98-107); Estimated GFR 117; Glucose 185 mg/dL (70-105); Potassium 4.2 mmol/L (3.5-5.1); Protein, Total 6.6 g/dL (6.0-8.3); Sodium 139 mmol/L (136-145)
[2023-08-30 07:42] LABS: Band 1 % (5-11); Burr Cells MODERATE= 6-15 cells HPF (0-1); CellaVision Operator ID LAB.GE; Giant Platelets 1.2 % (0-5); Hypochromia SLIGHT = 6-15 cells HPF (0-5); Large Platelets 22.4 % (0-5); Lymphocytes 22 % (21-51); Monocytes 5 % (0-10); Neutrophil 71 % (42-75); Nucleated RBC (Manual Ct) 1 % (0); Ovalocytes SLIGHT = 2-5 cells HPF (0-1); Platelet Adequacy Comment Platelets Normal; Polychromasia SLIGHT = 2-3 cells HPF (0-2); Total Cell Count 85
[2023-08-30] MEDS: levETIRAcetam 500 mg/5 ml Oral Solution PER TUBE SCH ×2 (08:42→22:31)
[2023-08-30] MEDS: Baclofen 10 MG TAB PER TUBE SCH ×2 (08:42→22:30)
[2023-08-30] MEDS: Calcium Carbonate 500 MG ChewTAB PER TUBE SCH ×2 (08:42→22:30)
[2023-08-30] MEDS: Pantoprazole 40 MG VIAL IVP SCH (08:42)
[2023-08-30] MEDS: metFORMIN 500 MG TAB PER TUBE SCH ×2 (08:42→17:06)
[2023-08-30] MEDS: Ferrous Sulfate 325 MG TAB PO SCH ×2 (08:42→17:06)
[2023-08-30] MEDS: traMADol HCl 50 MG TAB PO PRN (08:42)
[2023-08-30] MEDS ORDERED: Morphine 2 MG/ML VIAL SLOW IVP PRN ×2 (11:06→18:20)
[2023-08-30 11:16] LABS: Hematocrit 27.8 % (36.0-47.0); Hemoglobin 8.8 g/dL (12.0-16.0); Manual Diff?? YES; Mean Corpuscular HGB CONC 31.7 g/dL (32.0-36.0); Mean Corpuscular Hemoglobin 25.5 pg (27.0-31.0); Mean Platelet Volume 9.9 fL (7.4-10.4); Platelet Count 190 10x3/uL (130-400); RBC Distribution Width 18.9 % (11.5-14.5); Red Blood Cell (RBC) Count 3.45 mill/uL (4.20-5.40); White Blood Cell (WBC) Count 2.2 10x3/uL (4.8-10.8)
[2023-08-30] MEDS: Cefepime 2 GM in Sodium Chloride 0.9% 100 ML IVPB SCH ×2 (11:19→22:31)
[2023-08-30 11:25] LABS: Delete Auto Diff?? YES; Mean Corpuscular Volume 80.6 fl (78.0-98.0)
[2023-08-30] MEDS: Acetaminophen 650 MG/20.3 ML UDCUP PER TUBE SCH ×3 (11:54→22:09)
[2023-08-30] MEDS ORDERED: Acetaminophen 325 MG TAB PER TUBE SCH (12:00)
[2023-08-30] MEDS ORDERED: Morphine 2 MG/ML VIAL SLOW IVP SCH (12:00)
[2023-08-30] MEDS ORDERED: Communication Order-Pharmacy FS SCH (12:17)
[2023-08-30 12:27] LABS: Band 4 % (5-11); Burr Cells MODERATE= 6-15 cells HPF (0-1); CellaVision Operator ID LAB.GE; Hypochromia SLIGHT = 6-15 cells HPF (0-5); Large Platelets 2.9 % (0-5); Lymphocytes 39 % (21-51); Monocytes 30 % (0-10); Neutrophil 24 % (42-75); Platelet Adequacy Comment Platelets Normal; Platelet Clumps 3.9 % (0-5); Polychromasia SLIGHT = 2-3 cells HPF (0-2); Reactive Lymphocytes 3 % (0-10); Reflex for Review?? YES; Schistocytes SLIGHT = 2-5 cells HPF (0-1); Total Cell Count 103
[2023-08-30 14:44] LABS: Ferritin 372.34 ng/mL (10-291)
[2023-08-30 14:49] LABS: Iron Binding Capacity, Total 194 mcg/dL (265-497)
[2023-08-30 15:21] LABS: Iron 48 ug/dL (50-170)
[2023-08-30] MEDS ORDERED: Glucagon 1 MG/ML KIT IM PRN (18:30)
[2023-08-30] MEDS ORDERED: Dextrose 5% in Water 1,000 ML IV PRN (18:30)
[2023-08-30] MEDS ORDERED: Dextrose 50% Abboject 50 ML SYRINGE SLOW IVP PRN (18:30)
[2023-08-30] MEDS: Enoxaparin 60 MG (0.6 mL) SYRINGE SC SCH (22:30)
[2023-08-30] MEDS: QUEtiapine 25 MG TAB PER TUBE SCH (22:30)
[2023-08-30] MEDS: lamoTRIgine 25 MG TAB PER TUBE SCH (22:30)
[2023-08-30] MEDS: hydrOXYzine 25 MG TAB PER TUBE SCH (22:30)
[2023-08-30 23:06] LABS: Hematocrit 29.2 % (36.0-47.0); Hemoglobin 9.3 g/dL (12.0-16.0); Platelet Count 249 10x3/uL (130-400)
[2023-08-31] MEDS: Acetaminophen 650 MG/20.3 ML UDCUP PER TUBE SCH ×3 (00:32→20:51)
[2023-08-31] MEDS: Ketorolac Tromethamine 30 MG (1 mL) VIAL IVP SCH ×2 (00:33→18:48)
[2023-08-31] MEDS: Vancomycin 1 GM in Premix 1 BAG IVPB SCH (00:33)
[2023-08-31] MEDS ORDERED: Ondansetron PF 4 MG/2 ML Vial IVP PRN (10:23)
[2023-08-31] MEDS ORDERED: Ondansetron PF 4 MG/2 ML Vial IVP SCH (10:30)
[2023-08-31] MEDS ORDERED: Vancomycin 1 GM in Premix 1 BAG IVPB SCH (11:15)
[2023-08-31 11:59] LABS: Hematocrit 25.9 % (36.0-47.0); Hemoglobin 8.1 g/dL (12.0-16.0); Manual Diff?? YES; Mean Corpuscular HGB CONC 31.3 g/dL (32.0-36.0); Mean Corpuscular Volume 83.3 fl (78.0-98.0); Mean Platelet Volume 9.4 fL (7.4-10.4); Platelet Count 187 10x3/uL (130-400); RBC Distribution Width 19.9 % (11.5-14.5); Red Blood Cell (RBC) Count 3.11 mill/uL (4.20-5.40); White Blood Cell (WBC) Count 3.9 10x3/uL (4.8-10.8)
[2023-08-31 12:01] LABS: Delete Auto Diff?? YES
[2023-08-31 12:24] LABS: Anisocytosis MARKED = >30 cells HPF (0-5); Band 8 % (5-11); CellaVision Operator ID LAB.KW3; Eosinophils 6 % (0-10); Hypochromia SLIGHT = 6-15 cells HPF (0-5); Large Platelets 7.7 % (0-5); Lymphocytes 41 % (21-51); Macrocytosis MODERATE=16-30 cells HPF (0-5); Metamyelocyte 2 % (0-0); Monocytes 20 % (0-10); Neutrophil 22 % (42-75); Platelet Adequacy Comment Platelets Normal; Polychromasia MODERATE = 3-4 cells HPF (0-2); Schistocytes SLIGHT = 2-5 cells HPF (0-1); Target Cells SLIGHT = 2-5 cells HPF (0-1); Tear Drops SLIGHT = 2-5 cells HPF (0-1); Total Cell Count 104
[2023-08-31 12:27] LABS: Vancomycin, Trough 24.4 ug/mL
[2023-08-31 12:32] LABS: ALT (SGPT) 9 U/L (8-55); AST (SGOT) 4 U/L (5-34); Albumin 2.7 g/dL (3.5-5.0); Alkaline Phosphatase 104 U/L (40-110); Anion Gap 12 mmol/L (10-20); BUN (Urea Nitrogen) 25 mg/dL (7.0-18.7); Bilirubin, Total 0.2 mg/dL (0.2-1.2); Calc. Creatinine Clearance 127 mL/min (70-130); Calcium 8.3 mg/dL (7.8-10.44); Carbon Dioxide 21 mmol/L (22-29); Chloride 108 mmol/L (98-107); Estimated GFR 116; Globulin 3.8 g/dL (2.4-3.5); Glucose 148 mg/dL (70-105); Potassium 3.7 mmol/L (3.5-5.1); Protein, Total 6.5 g/dL (6.0-8.3); Sodium 137 mmol/L (136-145)
[2023-08-31 12:41] LABS: HBSAB Concentration Less than 8.00 mIU/mL; HBSAg Index 0.22 S/CO (0-0.99); HIV (1/2) Antibody/Antigen Non-Reactive (NonReactive); HIV 1/2 INDEX 0.16 S/CO (<1.00); Hep B Surf AB Non-Reactive (NonReactive); Hep B Surf Ag Non-Reactive S/CO (NonReactive); Hep C IgG Ab Non-Reactive S/CO (NonReactive); Hep C Index 0.07 S/CO (0-0.79); Hepatitis B Core IgM Abs Non-Reactive S/CO (NonReactive)
[2023-08-31 13:08] LABS: MONO NEGATIVE CONTROL ZONE White (Negative) (White); MONO POSITIVE CONTROL Pink Line (Positive) (PINK/RED); Mononucleosis NEGATIVE (NEGATIVE)
[2023-08-31 13:29] LABS: Syphilis Antibody Nonreactive (Nonreactive); Syphilis Antibody Index 0.43 S/CO (<1.00 Non-Reactive)
[2023-08-31] MEDS: Ferrous Sulfate 325 MG TAB PO SCH (18:49)
[2023-08-31] MEDS: metFORMIN 500 MG TAB PER TUBE SCH (18:49)
[2023-08-31] MEDS: Baclofen 10 MG TAB PER TUBE SCH ×2 (18:50→20:52)
[2023-08-31] MEDS: Calcium Carbonate 500 MG ChewTAB PER TUBE SCH ×2 (18:50→20:51)
[2023-08-31] MEDS: Enoxaparin 60 MG (0.6 mL) SYRINGE SC SCH ×2 (18:50→20:51)
[2023-08-31] MEDS: levETIRAcetam 500 mg/5 ml Oral Solution PER TUBE SCH ×2 (18:50→20:51)
[2023-08-31] MEDS: Pantoprazole 40 MG VIAL IVP SCH (18:50)
[2023-08-31] MEDS: Vancomycin HCl 750 MG in Sodium Chloride 0.9% 250 ML 250 ML IVPB SCH (18:51)
[2023-08-31] MEDS: cefTRIAXone\\ROCEPHIN 1 GM in Sodium Chloride 0.9% 100 ML IVPB SCH (18:51)
[2023-08-31] MEDS: Cefepime 2 GM in Sodium Chloride 0.9% 100 ML IVPB SCH (18:52)
[2023-08-31] MEDS: metroNIDAZOLE 500 MG in Premix 1 BAG IVPB SCH (18:52)
[2023-08-31] MEDS: Lactated Ringer's 1,000 ML IV SCH (20:51)
[2023-08-31] MEDS: lamoTRIgine 25 MG TAB PER TUBE SCH (20:51)
[2023-08-31] MEDS: hydrOXYzine 25 MG TAB PER TUBE SCH (20:52)
[2023-08-31] MEDS: QUEtiapine 25 MG TAB PER TUBE SCH (20:52)
[2023-09-01] MEDS: Acetaminophen 650 MG/20.3 ML UDCUP PER TUBE SCH ×7 (01:04→23:17)
[2023-09-01] MEDS: Ketorolac Tromethamine 30 MG (1 mL) VIAL IVP SCH ×5 (01:04→23:17)
[2023-09-01] MEDS: Vancomycin HCl 750 MG in Sodium Chloride 0.9% 250 ML 250 ML IVPB SCH ×2 (04:39→17:04)
[2023-09-01] MEDS: Lactated Ringer's 1,000 ML IV SCH ×3 (04:58→23:17)
[2023-09-01 08:47] LABS: Hemoglobin 8.9 g/dL (12.0-16.0); Manual Diff?? YES; Mean Corpuscular HGB CONC 29.7 g/dL (32.0-36.0); Mean Corpuscular Hemoglobin 24.8 pg (27.0-31.0); Mean Corpuscular Volume 83.6 fl (78.0-98.0); Mean Platelet Volume 9.4 fL (7.4-10.4); Platelet Count 219 10x3/uL (130-400); Red Blood Cell (RBC) Count 3.59 mill/uL (4.20-5.40); White Blood Cell (WBC) Count 4.7 10x3/uL (4.8-10.8)
[2023-09-01] MEDS: traMADol HCl 50 MG TAB PO PRN (09:00)
[2023-09-01] MEDS: levETIRAcetam 500 mg/5 ml Oral Solution PER TUBE SCH ×2 (09:00→20:23)
[2023-09-01 09:01] LABS: Delete Auto Diff?? YES
[2023-09-01] MEDS: Ferrous Sulfate 325 MG TAB PO SCH ×2 (09:04→17:04)
[2023-09-01] MEDS: Enoxaparin 60 MG (0.6 mL) SYRINGE SC SCH ×2 (09:04→20:23)
[2023-09-01] MEDS: Calcium Carbonate 500 MG ChewTAB PER TUBE SCH ×2 (09:04→20:22)
[2023-09-01] MEDS: Baclofen 10 MG TAB PER TUBE SCH ×2 (09:04→20:22)
[2023-09-01] MEDS: Pantoprazole 40 MG VIAL IVP SCH (09:05)
[2023-09-01 09:14] LABS: ALT (SGPT) 10 U/L (8-55); AST (SGOT) 7 U/L (5-34); Alkaline Phosphatase 82 U/L (40-110); Anion Gap 11 mmol/L (10-20); BUN (Urea Nitrogen) 22 mg/dL (7.0-18.7); Bilirubin, Total 0.2 mg/dL (0.2-1.2); Calc. Creatinine Clearance 134 mL/min (70-130); Calcium 8.8 mg/dL (7.8-10.44); Carbon Dioxide 21 mmol/L (22-29); Chloride 110 mmol/L (98-107); Estimated GFR 118; Globulin 4.2 g/dL (2.4-3.5); Glucose 130 mg/dL (70-105); Potassium 3.7 mmol/L (3.5-5.1); Protein, Total 7.2 g/dL (6.0-8.3); Sodium 138 mmol/L (136-145)
[2023-09-01] MEDS ORDERED: Morphine 2 MG/ML VIAL SLOW IVP SCH (09:30)
[2023-09-01 10:36] LABS: Anisocytosis SLIGHT = 6-15 cells HPF (0-5); Band 4 % (5-11); CellaVision Operator ID LAB.GE; Eosinophils 4 % (0-10); Hypochromia MODERATE=16-30 cells HPF (0-5); Large Platelets 6.7 % (0-5); Lymphocytes 42 % (21-51); Monocytes 14 % (0-10); Neutrophil 35 % (42-75); Ovalocytes SLIGHT = 2-5 cells HPF (0-1); Platelet Adequacy Comment Platelets Normal; Polychromasia MODERATE = 3-4 cells HPF (0-2); Total Cell Count 104
[2023-09-01] MEDS: Morphine 2 MG/ML VIAL SLOW IVP PRN (11:14)
[2023-09-01] MEDS: metFORMIN 500 MG TAB PER TUBE SCH ×2 (12:39→17:06)
[2023-09-01] MEDS: cefTRIAXone\\ROCEPHIN 1 GM in Sodium Chloride 0.9% 100 ML IVPB SCH (12:41)
[2023-09-01] MEDS: QUEtiapine 25 MG TAB PER TUBE SCH (20:23)
[2023-09-01] MEDS: hydrOXYzine 25 MG TAB PER TUBE SCH (20:24)
[2023-09-01] MEDS: lamoTRIgine 25 MG TAB PER TUBE SCH (20:24)
[2023-09-02] MEDS: Morphine 2 MG/ML VIAL SLOW IVP PRN (01:19)
[2023-09-02] MEDS: Ketorolac Tromethamine 30 MG (1 mL) VIAL IVP SCH ×4 (05:14→23:04)
[2023-09-02] MEDS: Acetaminophen 650 MG/20.3 ML UDCUP PER TUBE SCH ×5 (05:14→22:55)
[2023-09-02 05:38] LABS: Hematocrit 28.7 % (36.0-47.0); Hemoglobin 8.7 g/dL (12.0-16.0); Manual Diff?? YES; Mean Corpuscular HGB CONC 30.3 g/dL (32.0-36.0); Mean Corpuscular Hemoglobin 25.5 pg (27.0-31.0); Mean Corpuscular Volume 84.2 fl (78.0-98.0); Mean Platelet Volume 10.2 fL (7.4-10.4); Platelet Count 243 10x3/uL (130-400); RBC Distribution Width 20.6 % (11.5-14.5); Red Blood Cell (RBC) Count 3.41 mill/uL (4.20-5.40); White Blood Cell (WBC) Count 4.6 10x3/uL (4.8-10.8)
[2023-09-02 05:53] LABS: Delete Auto Diff?? YES
[2023-09-02 06:25] LABS: Anisocytosis SLIGHT = 6-15 cells HPF (0-5); Band 1 % (5-11); CellaVision Operator ID lab.abc; Eosinophils 3 % (0-10); Hypochromia SLIGHT = 6-15 cells HPF (0-5); Large Platelets 9.7 % (0-5); Lymphocytes 39 % (21-51); Monocytes 29 % (0-10); Neutrophil 28 % (42-75); Platelet Adequacy Comment Platelets Normal; Polychromasia SLIGHT = 2-3 cells HPF (0-2); Smudge Cells 27.8 %; Target Cells SLIGHT = 2-5 cells HPF (0-1); Total Cell Count 72
[2023-09-02 06:31] LABS: Vancomycin, Trough 18.6 ug/mL
[2023-09-02 06:35] LABS: ALT (SGPT) 10 U/L (8-55); AST (SGOT) 12 U/L (5-34); Alkaline Phosphatase 108 U/L (40-110); Anion Gap 11 mmol/L (10-20); BUN (Urea Nitrogen) 19 mg/dL (7.0-18.7); Bilirubin, Total 0.2 mg/dL (0.2-1.2); Calc. Creatinine Clearance 131 mL/min (70-130); Calcium 8.6 mg/dL (7.8-10.44); Carbon Dioxide 23 mmol/L (22-29); Chloride 110 mmol/L (98-107); Estimated GFR 117; Glucose 146 mg/dL (70-105); Potassium 3.8 mmol/L (3.5-5.1); Sodium 140 mmol/L (136-145)
[2023-09-02] MEDS: Vancomycin HCl 750 MG in Sodium Chloride 0.9% 250 ML 250 ML IVPB SCH ×2 (06:45→16:06)
[2023-09-02] MEDS: Calcium Carbonate 500 MG ChewTAB PER TUBE SCH ×2 (08:24→22:54)
[2023-09-02] MEDS: levETIRAcetam 500 mg/5 ml Oral Solution PER TUBE SCH ×2 (08:24→22:53)
[2023-09-02] MEDS: traMADol HCl 50 MG TAB PO PRN ×2 (08:25→16:04)
[2023-09-02] MEDS: Enoxaparin 60 MG (0.6 mL) SYRINGE SC SCH ×2 (08:26→22:54)
[2023-09-02] MEDS: Baclofen 10 MG TAB PER TUBE SCH ×2 (08:26→22:53)
[2023-09-02] MEDS: Ferrous Sulfate 325 MG TAB PO SCH ×2 (08:26→16:06)
[2023-09-02] MEDS: Pantoprazole 40 MG VIAL IVP SCH (08:26)
[2023-09-02] MEDS: metFORMIN 500 MG TAB PER TUBE SCH ×2 (10:14→17:49)
[2023-09-02] MEDS: cefTRIAXone\\ROCEPHIN 1 GM in Sodium Chloride 0.9% 100 ML IVPB SCH (12:46)
[2023-09-02] MEDS: Lactated Ringer's 1,000 ML IV SCH ×2 (12:46→22:54)
[2023-09-02] MEDS: Metoclopramide HCl 10 MG (2 mL) VIAL IVP PRN (17:48)
[2023-09-02] MEDS: hydrOXYzine 25 MG TAB PER TUBE SCH (22:54)
[2023-09-02] MEDS: lamoTRIgine 25 MG TAB PER TUBE SCH (22:55)
[2023-09-02] MEDS: QUEtiapine 25 MG TAB PER TUBE SCH (22:55)
[2023-09-02] MEDS: traZODone HCl 50 MG TAB PER TUBE PRN (23:05)
[2023-09-03] MEDS: Acetaminophen 650 MG/20.3 ML UDCUP PER TUBE SCH ×6 (00:12→22:42)
[2023-09-03] MEDS: Vancomycin HCl 750 MG in Sodium Chloride 0.9% 250 ML 250 ML IVPB SCH ×2 (04:45→17:06)
[2023-09-03] MEDS: Ketorolac Tromethamine 30 MG (1 mL) VIAL IVP SCH ×3 (07:02→17:05)
[2023-09-03] MEDS: Lactated Ringer's 1,000 ML IV SCH ×2 (07:03→17:08)
[2023-09-03] MEDS: levETIRAcetam 500 mg/5 ml Oral Solution PER TUBE SCH ×2 (09:28→22:36)
[2023-09-03] MEDS: Ferrous Sulfate 325 MG TAB PO SCH ×2 (09:28→17:05)
[2023-09-03] MEDS: Metoclopramide HCl 10 MG (2 mL) VIAL IVP PRN (09:28)
[2023-09-03] MEDS: Baclofen 10 MG TAB PER TUBE SCH ×2 (09:28→22:38)
[2023-09-03] MEDS: Calcium Carbonate 500 MG ChewTAB PER TUBE SCH ×2 (09:28→22:38)
[2023-09-03] MEDS: Pantoprazole 40 MG VIAL IVP SCH (09:29)
[2023-09-03] MEDS: metFORMIN 500 MG TAB PER TUBE SCH ×2 (09:29→17:05)
[2023-09-03] MEDS: traMADol HCl 50 MG TAB PO PRN (09:30)
[2023-09-03] MEDS: Enoxaparin 60 MG (0.6 mL) SYRINGE SC SCH ×2 (09:30→22:36)
[2023-09-03 10:02] LABS: ALT (SGPT) 12 U/L (8-55); AST (SGOT) 21 U/L (5-34); Albumin 2.4 g/dL (3.5-5.0); Alkaline Phosphatase 96 U/L (40-110); Anion Gap 15 mmol/L (10-20); BUN (Urea Nitrogen) 13 mg/dL (7.0-18.7); Bilirubin, Total 0.2 mg/dL (0.2-1.2); Calc. Creatinine Clearance 155 mL/min (70-130); Calcium 8.4 mg/dL (7.8-10.44); Carbon Dioxide 17 mmol/L (22-29); Chloride 112 mmol/L (98-107); Estimated GFR 122; Globulin 4.3 g/dL (2.4-3.5); Glucose 98 mg/dL (70-105); Potassium 4.8 mmol/L (3.5-5.1); Protein, Total 6.7 g/dL (6.0-8.3); Sodium 139 mmol/L (136-145)
[2023-09-03] MEDS: cefTRIAXone\\ROCEPHIN 1 GM in Sodium Chloride 0.9% 100 ML IVPB SCH (12:03)
[2023-09-03] MEDS: Morphine 2 MG/ML VIAL SLOW IVP PRN (12:07)
[2023-09-03] MEDS ORDERED: Vancomycin HCl 750 MG in Sodium Chloride 0.9% 250 ML 250 ML IVPB SCH (15:30)
[2023-09-03 16:48] LABS: #Eosinphils 0.2 thou/uL (0.0-0.7); #Monocytes 0.9 thou/uL (0.11-0.59); #Neutrophils 4.3 thou/uL (1.40-6.50); %Basophils 0.2 % (0.0-1.0); %Eosinophils 1.9 % (0.0-10.0); %Lymphocytes 34.5 % (21.0-51.0); %Monocytes 10.9 % (0.0-10.0); %Neutrophils 51.1 % (42.0-75.0); Hematocrit 26.2 % (36.0-47.0); Hemoglobin 8.3 g/dL (12.0-16.0); Mean Corpuscular HGB CONC 31.7 g/dL (32.0-36.0); Mean Corpuscular Hemoglobin 25.2 pg (27.0-31.0); Mean Corpuscular Volume 79.6 fl (78.0-98.0); Mean Platelet Volume 10.4 fL (7.4-10.4); Platelet Count 253 10x3/uL (130-400); RBC Distribution Width 20.9 % (11.5-14.5); Red Blood Cell (RBC) Count 3.29 mill/uL (4.20-5.40); White Blood Cell (WBC) Count 8.4 10x3/uL (4.8-10.8)
[2023-09-03] MEDS: QUEtiapine 25 MG TAB PER TUBE SCH (22:38)
[2023-09-03] MEDS: lamoTRIgine 25 MG TAB PER TUBE SCH (22:38)
[2023-09-03] MEDS: hydrOXYzine 25 MG TAB PER TUBE SCH (22:38)
[2023-09-04] MEDS: Acetaminophen 650 MG/20.3 ML UDCUP PER TUBE SCH ×7 (00:41→22:44)
[2023-09-04] MEDS: Ketorolac Tromethamine 30 MG (1 mL) VIAL IVP SCH (02:25)
[2023-09-04] MEDS: Lactated Ringer's 1,000 ML IV SCH ×3 (03:41→22:31)
[2023-09-04 05:10] LABS: #Eosinphils 0.1 thou/uL (0.0-0.7); #Neutrophils 3.4 thou/uL (1.40-6.50); %Basophils 0.1 % (0.0-1.0); %Eosinophils 1.8 % (0.0-10.0); %Lymphocytes 40.2 % (21.0-51.0); %Monocytes 12.5 % (0.0-10.0); %Neutrophils 44.5 % (42.0-75.0); Hematocrit 25.4 % (36.0-47.0); Mean Corpuscular HGB CONC 31.5 g/dL (32.0-36.0); Mean Corpuscular Hemoglobin 26.1 pg (27.0-31.0); Mean Platelet Volume 10.7 fL (7.4-10.4); Platelet Count 248 10x3/uL (130-400); RBC Distribution Width 21.2 % (11.5-14.5); Red Blood Cell (RBC) Count 3.07 mill/uL (4.20-5.40); White Blood Cell (WBC) Count 7.6 10x3/uL (4.8-10.8)
[2023-09-04 05:14] LABS: Mean Corpuscular Volume 82.7 fl (78.0-98.0)
[2023-09-04 05:24] LABS: Vancomycin, Trough 15.2 ug/mL
[2023-09-04 05:27] LABS: ALT (SGPT) 12 U/L (8-55); AST (SGOT) 15 U/L (5-34); Albumin 2.2 g/dL (3.5-5.0); Alkaline Phosphatase 85 U/L (40-110); Anion Gap 10 mmol/L (10-20); BUN (Urea Nitrogen) 10 mg/dL (7.0-18.7); Bilirubin, Total 0.2 mg/dL (0.2-1.2); Calc. Creatinine Clearance 163 mL/min (70-130); Calcium 7.7 mg/dL (7.8-10.44); Carbon Dioxide 22 mmol/L (22-29); Chloride 112 mmol/L (98-107); Estimated GFR 124; Globulin 3.3 g/dL (2.4-3.5); Glucose 95 mg/dL (70-105); Potassium 3.9 mmol/L (3.5-5.1); Protein, Total 5.5 g/dL (6.0-8.3); Sodium 140 mmol/L (136-145)
[2023-09-04] MEDS: Vancomycin HCl 750 MG in Sodium Chloride 0.9% 250 ML 250 ML IVPB SCH ×2 (05:37→16:52)
[2023-09-04] MEDS: Morphine 2 MG/ML VIAL SLOW IVP PRN ×2 (06:29→22:25)
[2023-09-04] MEDS: levETIRAcetam 500 mg/5 ml Oral Solution PER TUBE SCH ×2 (09:17→22:30)
[2023-09-04] MEDS: metFORMIN 500 MG TAB PER TUBE SCH ×2 (09:18→16:52)
[2023-09-04] MEDS: Baclofen 10 MG TAB PER TUBE SCH ×2 (09:18→22:31)
[2023-09-04] MEDS: Enoxaparin 60 MG (0.6 mL) SYRINGE SC SCH ×2 (09:18→22:31)
[2023-09-04] MEDS: Ferrous Sulfate 325 MG TAB PO SCH ×2 (09:18→16:52)
[2023-09-04] MEDS: Calcium Carbonate 500 MG ChewTAB PER TUBE SCH ×2 (09:18→22:31)
[2023-09-04] MEDS: Pantoprazole 40 MG VIAL IVP SCH (09:19)
[2023-09-04] MEDS ORDERED: cefTRIAXone (ROCEPHIN) 2 GM VIAL ONE (11:19)
[2023-09-04] MEDS ORDERED: Sodium Chloride 0.9% 100 ML ONE (11:19)
[2023-09-04] MEDS ORDERED: PROPOFOL 20 ML ONE (11:35)
[2023-09-04] MEDS ORDERED: Lidocaine 2% PF 5 ML VIAL ONE (11:35)
[2023-09-04] MEDS ORDERED: fentaNYL PF 100 MCG/2 ML SYRINGE ONE (11:35)
[2023-09-04] MEDS ORDERED: Ondansetron PF 4 MG/2 ML Vial ONE (11:36)
[2023-09-04] MEDS ORDERED: Dexamethasone 20 MG/5 ML VIAL ONE (11:36)
[2023-09-04] MEDS ORDERED: PHENYLEPHRINE-NS 100 MCG/ML 10 ML SYRINGE ONE (12:03)
[2023-09-04] MEDS ORDERED: Ondansetron HCl/PF 4 MG/2 ML Vial IVP PRN (12:57)
[2023-09-04] MEDS ORDERED: Promethazine HCl 25 MG/ML VIAL IM PRN (12:57)
[2023-09-04] MEDS: cefTRIAXone\\ROCEPHIN 1 GM in Sodium Chloride 0.9% 100 ML IVPB SCH (13:37)
[2023-09-04] MEDS ORDERED: Sodium Chloride 0.9% 500 ML IV SCH (17:30)
[2023-09-04] MEDS ORDERED: Midazolam HCl 2 mg/2 ml Vial ONE (17:55)
[2023-09-04] MEDS: QUEtiapine 25 MG TAB PER TUBE SCH (22:31)
[2023-09-04] MEDS: hydrOXYzine 25 MG TAB PER TUBE SCH (22:31)
[2023-09-04] MEDS: lamoTRIgine 25 MG TAB PER TUBE SCH (22:31)
[2023-09-04] MEDS: traZODone HCl 50 MG TAB PER TUBE PRN (22:44)
[2023-09-05] MEDS: Morphine 2 MG/ML VIAL SLOW IVP PRN ×2 (02:16→18:31)
[2023-09-05 03:32] LABS: #Monocytes 1.4 thou/uL (0.11-0.59); #Neutrophils 10.8 thou/uL (1.40-6.50); %Basophils 0.1 % (0.0-1.0); %Lymphocytes 17.2 % (21.0-51.0); %Monocytes 9.1 % (0.0-10.0); %Neutrophils 72.3 % (42.0-75.0); Hematocrit 31.2 % (36.0-47.0); Hemoglobin 10.5 g/dL (12.0-16.0); Mean Corpuscular HGB CONC 33.7 g/dL (32.0-36.0); Mean Corpuscular Hemoglobin 27.9 pg (27.0-31.0); Mean Platelet Volume 10.9 fL (7.4-10.4); RBC Distribution Width 17.7 % (11.5-14.5); Red Blood Cell (RBC) Count 3.76 mill/uL (4.20-5.40)
[2023-09-05 03:41] LABS: Platelet Count 136 10x3/uL (130-400)
[2023-09-05 03:59] LABS: ALT (SGPT) 11 U/L (8-55); AST (SGOT) 14 U/L (5-34); Albumin 2.1 g/dL (3.5-5.0); Alkaline Phosphatase 65 U/L (40-110); Anion Gap 8 mmol/L (10-20); BUN (Urea Nitrogen) 11 mg/dL (7.0-18.7); Bilirubin, Total 0.4 mg/dL (0.2-1.2); Calc. Creatinine Clearance 142 mL/min (70-130); Calcium 7.3 mg/dL (7.8-10.44); Carbon Dioxide 20 mmol/L (22-29); Chloride 113 mmol/L (98-107); Estimated GFR 120; Globulin 2.7 g/dL (2.4-3.5); Glucose 134 mg/dL (70-105); Potassium 4.1 mmol/L (3.5-5.1); Protein, Total 4.8 g/dL (6.0-8.3); Sodium 137 mmol/L (136-145)
[2023-09-05] MEDS: Acetaminophen 650 MG/20.3 ML UDCUP PER TUBE SCH ×5 (04:26→19:55)
[2023-09-05] MEDS: Vancomycin HCl 750 MG in Sodium Chloride 0.9% 250 ML 250 ML IVPB SCH ×2 (04:27→19:55)
[2023-09-05] MEDS: traMADol HCl 50 MG TAB PO PRN (04:27)
[2023-09-05] MEDS: Pantoprazole 40 MG VIAL IVP SCH (09:38)
[2023-09-05] MEDS: metFORMIN 500 MG TAB PER TUBE SCH ×2 (09:40→17:23)
[2023-09-05] MEDS: Ferrous Sulfate 325 MG TAB PO SCH ×2 (09:40→17:24)
[2023-09-05] MEDS: Baclofen 10 MG TAB PER TUBE SCH ×2 (09:40→19:57)
[2023-09-05] MEDS: Calcium Carbonate 500 MG ChewTAB PER TUBE SCH ×2 (09:40→19:57)
[2023-09-05] MEDS: Saccharomyces boulardii 250 MG CAP PO SCH (09:40)
[2023-09-05] MEDS: Lactated Ringer's 1,000 ML IV SCH ×2 (09:41→19:53)
[2023-09-05] MEDS: Enoxaparin 60 MG (0.6 mL) SYRINGE SC SCH ×2 (09:41→20:59)
[2023-09-05] MEDS: levETIRAcetam 500 mg/5 ml Oral Solution PER TUBE SCH ×2 (09:42→19:56)
[2023-09-05] MEDS ORDERED: Sodium Bicarbonate 0.5 MEQ/ML SDV 10 ML ONE (09:58)
[2023-09-05] MEDS ORDERED: Lidocaine 1% PF 5 ML VIAL ONE (10:00)
[2023-09-05] MEDS ORDERED: Vancomycin HCl 750 MG in Sodium Chloride 0.9% 250 ML 250 ML IVPB SCH (11:45)
[2023-09-05] MEDS: cefTRIAXone\\ROCEPHIN 1 GM in Sodium Chloride 0.9% 100 ML IVPB SCH (12:38)
[2023-09-05 18:47] LABS: Vancomycin, Trough 14.1 ug/mL
[2023-09-05] MEDS: hydrOXYzine 25 MG TAB PER TUBE SCH (19:57)
[2023-09-05] MEDS: lamoTRIgine 25 MG TAB PER TUBE SCH (19:57)
[2023-09-05] MEDS: QUEtiapine 25 MG TAB PER TUBE SCH (19:57)
[2023-09-06] MEDS: Acetaminophen 650 MG/20.3 ML UDCUP PER TUBE SCH ×7 (00:03→23:10)
[2023-09-06] MEDS: Morphine 2 MG/ML VIAL SLOW IVP PRN ×3 (05:48→13:34)
[2023-09-06] MEDS: Lactated Ringer's 1,000 ML IV SCH ×2 (05:50→18:01)
[2023-09-06 06:12] LABS: #Eosinphils 0.1 thou/uL (0.0-0.7); #Monocytes 1.5 thou/uL (0.11-0.59); #Neutrophils 7.5 thou/uL (1.40-6.50); %Basophils 0.1 % (0.0-1.0); %Eosinophils 0.8 % (0.0-10.0); %Lymphocytes 22.9 % (21.0-51.0); %Monocytes 12.4 % (0.0-10.0); %Neutrophils 63.5 % (42.0-75.0); Hematocrit 24.9 % (36.0-47.0); Hemoglobin 8.3 g/dL (12.0-16.0); Mean Corpuscular HGB CONC 33.3 g/dL (32.0-36.0); Mean Corpuscular Volume 84.1 fl (78.0-98.0); Mean Platelet Volume 10.2 fL (7.4-10.4); Platelet Count 266 10x3/uL (130-400); RBC Distribution Width 18.7 % (11.5-14.5); Red Blood Cell (RBC) Count 2.96 mill/uL (4.20-5.40); White Blood Cell (WBC) Count 11.8 10x3/uL (4.8-10.8)
[2023-09-06 06:25] LABS: ALT (SGPT) 12 U/L (8-55); AST (SGOT) 12 U/L (5-34); Albumin 2.2 g/dL (3.5-5.0); Alkaline Phosphatase 93 U/L (40-110); Anion Gap 8 mmol/L (10-20); BUN (Urea Nitrogen) 11 mg/dL (7.0-18.7); Bilirubin, Total 0.2 mg/dL (0.2-1.2); Calc. Creatinine Clearance 144 mL/min (70-130); Calcium 7.7 mg/dL (7.8-10.44); Carbon Dioxide 23 mmol/L (22-29); Chloride 111 mmol/L (98-107); Estimated GFR 120; Globulin 2.9 g/dL (2.4-3.5); Glucose 140 mg/dL (70-105); Potassium 3.7 mmol/L (3.5-5.1); Protein, Total 5.1 g/dL (6.0-8.3); Sodium 138 mmol/L (136-145)
[2023-09-06] MEDS: Saccharomyces boulardii 250 MG CAP PO SCH (07:50)
[2023-09-06] MEDS: Ferrous Sulfate 325 MG TAB PO SCH ×2 (07:50→16:08)
[2023-09-06] MEDS: Baclofen 10 MG TAB PER TUBE SCH ×2 (07:50→20:14)
[2023-09-06] MEDS: Calcium Carbonate 500 MG ChewTAB PER TUBE SCH ×2 (07:50→20:14)
[2023-09-06] MEDS: levETIRAcetam 500 mg/5 ml Oral Solution PER TUBE SCH ×2 (07:50→20:14)
[2023-09-06] MEDS: Pantoprazole 40 MG VIAL IVP SCH (07:50)
[2023-09-06] MEDS: traMADol HCl 50 MG TAB PO PRN ×2 (07:51→16:09)
[2023-09-06] MEDS: Vancomycin HCl 750 MG in Sodium Chloride 0.9% 250 ML 250 ML IVPB SCH ×2 (07:52→19:23)
[2023-09-06] MEDS: metFORMIN 500 MG TAB PER TUBE SCH ×2 (07:52→16:08)
[2023-09-06] MEDS: Metoclopramide HCl 10 MG (2 mL) VIAL IVP PRN (08:17)
[2023-09-06] MEDS: Enoxaparin 60 MG (0.6 mL) SYRINGE SC SCH ×2 (08:17→20:14)
[2023-09-06] MEDS: cefTRIAXone\\ROCEPHIN 1 GM in Sodium Chloride 0.9% 100 ML IVPB SCH (10:49)
[2023-09-06] MEDS: hydrOXYzine 25 MG TAB PER TUBE SCH (20:14)
[2023-09-06] MEDS: QUEtiapine 25 MG TAB PER TUBE SCH (20:14)
[2023-09-06] MEDS: lamoTRIgine 25 MG TAB PER TUBE SCH (20:14)
[2023-09-07] MEDS: Lactated Ringer's 1,000 ML IV SCH (00:30)
[2023-09-07] MEDS: Acetaminophen 650 MG/20.3 ML UDCUP PER TUBE SCH ×5 (03:14→20:44)
[2023-09-07 06:41] LABS: #Eosinphils 0.1 thou/uL (0.0-0.7); #Neutrophils 10.1 thou/uL (1.40-6.50); %Basophils 0.1 % (0.0-1.0); %Eosinophils 0.8 % (0.0-10.0); %Lymphocytes 20.4 % (21.0-51.0); %Monocytes 12.9 % (0.0-10.0); %Neutrophils 65.3 % (42.0-75.0); Hematocrit 22.8 % (36.0-47.0); Hemoglobin 7.6 g/dL (12.0-16.0); Mean Corpuscular HGB CONC 33.3 g/dL (32.0-36.0); Mean Corpuscular Hemoglobin 28.5 pg (27.0-31.0); Mean Corpuscular Volume 85.4 fl (78.0-98.0); Mean Platelet Volume 9.9 fL (7.4-10.4); Platelet Count 326 10x3/uL (130-400); Red Blood Cell (RBC) Count 2.67 mill/uL (4.20-5.40); White Blood Cell (WBC) Count 15.4 10x3/uL (4.8-10.8)
[2023-09-07 07:05] LABS: ALT (SGPT) 10 U/L (8-55); AST (SGOT) 12 U/L (5-34); Albumin 2.3 g/dL (3.5-5.0); Alkaline Phosphatase 144 U/L (40-110); Anion Gap 9 mmol/L (10-20); BUN (Urea Nitrogen) 14 mg/dL (7.0-18.7); Bilirubin, Total 0.2 mg/dL (0.2-1.2); Calc. Creatinine Clearance 215 mL/min (70-130); Calcium 7.7 mg/dL (7.8-10.44); Carbon Dioxide 25 mmol/L (22-29); Chloride 111 mmol/L (98-107); Estimated GFR 122; Glucose 144 mg/dL (70-105); Potassium 3.9 mmol/L (3.5-5.1); Protein, Total 5.3 g/dL (6.0-8.3); Sodium 141 mmol/L (136-145)
[2023-09-07 07:24] LABS: Vancomycin, Trough 13.3 ug/mL
[2023-09-07] MEDS: Enoxaparin 60 MG (0.6 mL) SYRINGE SC SCH (08:38)
[2023-09-07] MEDS: metFORMIN 500 MG TAB PER TUBE SCH ×2 (08:38→16:24)
[2023-09-07] MEDS: levETIRAcetam 500 mg/5 ml Oral Solution PER TUBE SCH ×2 (08:39→20:45)
[2023-09-07] MEDS: Saccharomyces boulardii 250 MG CAP PO SCH (08:39)
[2023-09-07] MEDS: Calcium Carbonate 500 MG ChewTAB PER TUBE SCH ×2 (08:39→20:45)
[2023-09-07] MEDS: Vancomycin 1 GM in Premix 1 BAG IVPB SCH ×2 (08:39→20:44)
[2023-09-07] MEDS: Metoclopramide HCl 10 MG (2 mL) VIAL IVP PRN (08:39)
[2023-09-07] MEDS: Ferrous Sulfate 325 MG TAB PO SCH ×2 (08:39→16:24)
[2023-09-07] MEDS: Pantoprazole 40 MG VIAL IVP SCH (08:39)
[2023-09-07] MEDS: Baclofen 10 MG TAB PER TUBE SCH ×2 (08:40→20:45)
[2023-09-07] MEDS: traMADol HCl 50 MG TAB PO PRN (08:40)
[2023-09-07] MEDS: cefTRIAXone\\ROCEPHIN 1 GM in Sodium Chloride 0.9% 100 ML IVPB SCH (11:52)
[2023-09-07] MEDS: Morphine 2 MG/ML VIAL SLOW IVP PRN (11:53)
[2023-09-07 16:43] LABS: Hematocrit 20.1 % (36.0-47.0); Hemoglobin 6.9 g/dL (12.0-16.0)
[2023-09-07] MEDS: hydrOXYzine 25 MG TAB PER TUBE SCH (20:45)
[2023-09-07] MEDS: lamoTRIgine 25 MG TAB PER TUBE SCH (20:45)
[2023-09-07] MEDS: QUEtiapine 25 MG TAB PER TUBE SCH (20:45)
[2023-09-07] MEDS: traZODone HCl 50 MG TAB PER TUBE PRN (20:45)
[2023-09-07] MEDS ORDERED: Apixaban 5 MG TAB PO SCH (21:00)
[2023-09-08] MEDS: Acetaminophen 650 MG/20.3 ML UDCUP PER TUBE SCH ×6 (00:07→20:38)
[2023-09-08 00:51] LABS: Hematocrit 26.7 % (36.0-47.0); Hemoglobin 8.9 g/dL (12.0-16.0)
[2023-09-08 05:25] LABS: #Eosinphils 0.2 thou/uL (0.0-0.7); #Monocytes 1.3 thou/uL (0.11-0.59); #Neutrophils 7.4 thou/uL (1.40-6.50); %Basophils 0.1 % (0.0-1.0); %Eosinophils 1.3 % (0.0-10.0); %Lymphocytes 22.1 % (21.0-51.0); %Monocytes 11.5 % (0.0-10.0); %Neutrophils 64.7 % (42.0-75.0); Hematocrit 27.4 % (36.0-47.0); Hemoglobin 9.1 g/dL (12.0-16.0); Mean Corpuscular HGB CONC 33.2 g/dL (32.0-36.0); Mean Corpuscular Hemoglobin 28.2 pg (27.0-31.0); Mean Corpuscular Volume 84.8 fl (78.0-98.0); Mean Platelet Volume 10.7 fL (7.4-10.4); Platelet Count 341 10x3/uL (130-400); RBC Distribution Width 17.8 % (11.5-14.5); Red Blood Cell (RBC) Count 3.23 mill/uL (4.20-5.40); White Blood Cell (WBC) Count 11.4 10x3/uL (4.8-10.8)
[2023-09-08 06:01] LABS: Anion Gap 10 mmol/L (10-20); BUN (Urea Nitrogen) 12 mg/dL (7.0-18.7); Calc. Creatinine Clearance 220 mL/min (70-130); Carbon Dioxide 28 mmol/L (22-29); Chloride 109 mmol/L (98-107); Potassium 3.9 mmol/L (3.5-5.1); Sodium 143 mmol/L (136-145)
[2023-09-08 06:02] LABS: ALT (SGPT) 11 U/L (8-55); AST (SGOT) 14 U/L (5-34); Alkaline Phosphatase 152 U/L (40-110); Bilirubin, Total 0.2 mg/dL (0.2-1.2); Estimated GFR 123; Globulin 2.9 g/dL (2.4-3.5); Glucose 148 mg/dL (70-105); Protein, Total 4.9 g/dL (6.0-8.3)
[2023-09-08] MEDS: Vancomycin 1 GM in Premix 1 BAG IVPB SCH ×2 (07:53→20:38)
[2023-09-08] MEDS: Baclofen 10 MG TAB PER TUBE SCH ×2 (07:55→20:35)
[2023-09-08] MEDS: Calcium Carbonate 500 MG ChewTAB PER TUBE SCH ×2 (07:56→20:36)
[2023-09-08] MEDS: Ferrous Sulfate 325 MG TAB PO SCH ×2 (07:56→16:07)
[2023-09-08] MEDS: metFORMIN 500 MG TAB PER TUBE SCH ×2 (07:56→16:07)
[2023-09-08] MEDS: Pantoprazole 40 MG VIAL IVP SCH (07:56)
[2023-09-08] MEDS: Saccharomyces boulardii 250 MG CAP PO SCH (07:56)
[2023-09-08] MEDS: levETIRAcetam 500 mg/5 ml Oral Solution PER TUBE SCH ×2 (07:56→20:36)
[2023-09-08] MEDS ORDERED: Apixaban 5 MG TAB PO SCH (10:15)
[2023-09-08] MEDS: Morphine 2 MG/ML VIAL SLOW IVP PRN (10:30)
[2023-09-08] MEDS: Metoclopramide HCl 10 MG (2 mL) VIAL IVP PRN (11:39)
[2023-09-08] MEDS: cefTRIAXone\\ROCEPHIN 1 GM in Sodium Chloride 0.9% 100 ML IVPB SCH (11:40)
[2023-09-08] MEDS: traMADol HCl 50 MG TAB PO PRN ×2 (11:40→20:39)
[2023-09-08 16:19] LABS: Hematocrit 28.6 % (36.0-47.0); Hemoglobin 9.6 g/dL (12.0-16.0)
[2023-09-08 19:44] LABS: Vancomycin, Trough 12.8 ug/mL
[2023-09-08] MEDS: Vancomycin (BATCH) 1.25 GM in Premix 1 BAG IVPB SCH (20:35)
[2023-09-08] MEDS: lamoTRIgine 25 MG TAB PER TUBE SCH (20:35)
[2023-09-08] MEDS: Apixaban 5 MG TAB PO SCH (20:35)
[2023-09-08] MEDS: QUEtiapine 25 MG TAB PER TUBE SCH (20:36)
[2023-09-08] MEDS: hydrOXYzine 25 MG TAB PER TUBE SCH (20:36)
[2023-09-08] MEDS: traZODone HCl 50 MG TAB PER TUBE PRN (20:39)
[2023-09-08] MEDS ORDERED: Lactated Ringer's 500 ML IV SCH ×2 (22:00→23:00)
[2023-09-08] MEDS ORDERED: Lisinopril 10 MG TAB PO SCH (22:45)
[2023-09-08] MEDS: Lactated Ringer's 1,000 ML IV SCH (23:33)
[2023-09-09] MEDS: Acetaminophen 650 MG/20.3 ML UDCUP PER TUBE SCH ×6 (00:16→20:30)
[2023-09-09] MEDS: Morphine 2 MG/ML VIAL SLOW IVP PRN ×2 (05:09→19:22)
[2023-09-09] MEDS: Lactated Ringer's 1,000 ML IV SCH ×3 (05:17→22:28)
[2023-09-09 06:36] LABS: #Eosinphils 0.1 thou/uL (0.0-0.7); #Monocytes 1.5 thou/uL (0.11-0.59); #Neutrophils 6.6 thou/uL (1.40-6.50); %Basophils 0.2 % (0.0-1.0); %Eosinophils 1.2 % (0.0-10.0); %Lymphocytes 22.8 % (21.0-51.0); %Monocytes 13.7 % (0.0-10.0); %Neutrophils 61.7 % (42.0-75.0); Hematocrit 29.8 % (36.0-47.0); Hemoglobin 9.6 g/dL (12.0-16.0); Mean Corpuscular HGB CONC 32.2 g/dL (32.0-36.0); Mean Corpuscular Hemoglobin 28.6 pg (27.0-31.0); Mean Corpuscular Volume 88.7 fl (78.0-98.0); Mean Platelet Volume 10.9 fL (7.4-10.4); Platelet Count 403 10x3/uL (130-400); RBC Distribution Width 18.6 % (11.5-14.5); Red Blood Cell (RBC) Count 3.36 mill/uL (4.20-5.40); White Blood Cell (WBC) Count 10.7 10x3/uL (4.8-10.8)
[2023-09-09 07:03] LABS: ALT (SGPT) 10 U/L (8-55); AST (SGOT) 13 U/L (5-34); Albumin 2.2 g/dL (3.5-5.0); Alkaline Phosphatase 169 U/L (40-110); Anion Gap 9 mmol/L (10-20); BUN (Urea Nitrogen) 19 mg/dL (7.0-18.7); Bilirubin, Total 0.2 mg/dL (0.2-1.2); Calc. Creatinine Clearance 203 mL/min (70-130); Calcium 8.2 mg/dL (7.8-10.44); Carbon Dioxide 26 mmol/L (22-29); Chloride 107 mmol/L (98-107); Estimated GFR 122; Globulin 3.3 g/dL (2.4-3.5); Glucose 132 mg/dL (70-105); Potassium 3.8 mmol/L (3.5-5.1); Protein, Total 5.5 g/dL (6.0-8.3); Sodium 138 mmol/L (136-145)
[2023-09-09] MEDS: Apixaban 5 MG TAB PO SCH ×2 (08:49→20:31)
[2023-09-09] MEDS: Baclofen 10 MG TAB PER TUBE SCH ×2 (08:49→20:31)
[2023-09-09] MEDS: metFORMIN 500 MG TAB PER TUBE SCH ×2 (08:49→17:14)
[2023-09-09] MEDS: Ferrous Sulfate 325 MG TAB PO SCH ×2 (08:49→17:14)
[2023-09-09] MEDS: Calcium Carbonate 500 MG ChewTAB PER TUBE SCH ×2 (08:49→20:31)
[2023-09-09] MEDS: levETIRAcetam 500 mg/5 ml Oral Solution PER TUBE SCH ×2 (08:49→20:32)
[2023-09-09] MEDS: Saccharomyces boulardii 250 MG CAP PO SCH (08:49)
[2023-09-09] MEDS: Vancomycin (BATCH) 1.25 GM in Premix 1 BAG IVPB SCH ×2 (08:50→22:28)
[2023-09-09] MEDS: Pantoprazole 40 MG VIAL IVP SCH (08:50)
[2023-09-09] MEDS ORDERED: Lisinopril 10 MG TAB PO SCH (09:00)
[2023-09-09] MEDS: traMADol HCl 50 MG TAB PO PRN ×2 (09:07→20:32)
[2023-09-09] MEDS ORDERED: Loperamide HCl 2 MG CAP PO PRN (09:11)
[2023-09-09 12:29] VITALS: BMI 29.8
[2023-09-09] MEDS: cefTRIAXone\\ROCEPHIN 1 GM in Sodium Chloride 0.9% 100 ML IVPB SCH (12:39)
[2023-09-09 20:18] VITALS: BP 109/90; TEMP 100.2
[2023-09-09] MEDS: QUEtiapine 25 MG TAB PER TUBE SCH (20:31)
[2023-09-09] MEDS: hydrOXYzine 25 MG TAB PER TUBE SCH (20:32)
[2023-09-09] MEDS: lamoTRIgine 25 MG TAB PER TUBE SCH (20:32)
== END 2023-09-09 23:12 | DRG 853 ==
LOC: ERS 11:11 → ERHOLD 15:38 → 2NO 18:27 → T4-A 08-30 22:09
PROVIDERS: ADMIT Family Medicine; ATTEND Family Medicine
PROC: 30233N1 Transfusion of Nonautologous Red Blood Cells into Peripheral Vein, Percutaneous Approach (ICD-10-PCS; 2023-08-28)
PROC: 3E03329 Introduction of Other Anti-infective into Peripheral Vein, Percutaneous Approach (ICD-10-PCS; 2023-08-28)
PROC: 0JB90ZZ Excision of Buttock Subcutaneous Tissue and Fascia, Open Approach (ICD-10-PCS; 2023-08-29)
PROC: 3E033XZ Introduction of Vasopressor into Peripheral Vein, Percutaneous Approach (ICD-10-PCS; 2023-08-29)
PROC: 0W3L0ZZ Control Bleeding in Lower Back, Open Approach (ICD-10-PCS; 2023-09-04)
PROC: 0JB90ZZ Excision of Buttock Subcutaneous Tissue and Fascia, Open Approach (ICD-10-PCS; 2023-09-04)
PROC: 02HV33Z Insertion of Infusion Device into Superior Vena Cava, Percutaneous Approach (ICD-10-PCS; principal; 2023-09-05)
DX: A41.9 Sepsis, unspecified organism (principal); L89.224 Pressure ulcer of left hip, stage 4; L89.324 Pressure ulcer of left buttock, stage 4; L89.613 Pressure ulcer of right heel, stage 3; E87.1 Hypo-osmolality and hyponatremia; G82.20 Paraplegia, unspecified; I82.412 Acute embolism and thrombosis of left femoral vein; I82.432 Acute embolism and thrombosis of left popliteal vein; L76.22 Postprocedural hemorrhage of skin and subcutaneous tissue following other procedure; R13.10 Dysphagia, unspecified; E11.9 Type 2 diabetes mellitus without complications; I10 Essential (primary) hypertension; L89.312 Pressure ulcer of right buttock, stage 2; L89.610 Pressure ulcer of right heel, unstageable; D50.0 Iron deficiency anemia secondary to blood loss (chronic); L89.150 Pressure ulcer of sacral region, unstageable; R53.81 Other malaise; D50.9 Iron deficiency anemia, unspecified; R19.7 Diarrhea, unspecified; D72.819 Decreased white blood cell count, unspecified; Z93.1 Gastrostomy status; Z79.01 Long term (current) use of anticoagulants; Z98.890 Other specified postprocedural states; Z79.899 Other long term (current) drug therapy; Z86.711 Personal history of pulmonary embolism; Z88.8 Allergy status to other drugs, medicaments and biological substances; Z79.84 Long term (current) use of oral hypoglycemic drugs; Z87.820 Personal history of traumatic brain injury; Z74.01 Bed confinement status; Z11.52 Encounter for screening for COVID-19
CPT/HCPCS: 36415; 36416; 36430; 36569; 51701; 70450; 71045; 74018; 74177; 80053; 80202; 81001; 82274; 82607; 82728; 82805; 83540; 83550; 83605; 83690; 84484; 84703; 85025; 85046; 85060; 86140; 86308; 86705; 86706; 86780; 86803; 86850; 86900; 86901; 87040; 87077; 87081; 87086; 87340; 87389; 93005; 93010; 96365; 96366; 96367; 97139; C1751; C9113; J0171; J0665; J0692; J0696; J1100; J1650; J1885; J2001; J2250; J2272; J2405; J2704; J2765; J3010; J3370; J3370-JW; J3490; J7030; J7050; J7120; P9016; Q0162; Q9967; S0028